=== PATIENT | male | born 1955 | race Asian ===

== ENCOUNTER 2017-04-10 21:00 | Inpatient (IN) | payer BC ==
[~2017-04-10] VITALS: Ht 170.2 cm; Wt 54.9 kg
[2017-04-10 20:00] VITALS: BP 146/80
[2017-04-10 20:30] VITALS: BP 146/80
[2017-04-10] MEDS ORDERED: LOSA100T14 PO (22:36)
[2017-04-10] MEDS ORDERED: GLYB2.5T4 PO (22:36)
[2017-04-10] MEDS ORDERED: METF10002 PO (22:36)
[2017-04-10] MEDS ORDERED: ENTE0.5T4 PO (22:46)
[2017-04-10] MEDS ORDERED: ASPI-1158 PO (23:27)
[2017-04-10] MEDS ORDERED: SITA25TA3 PO (23:27)
[2017-04-10] MEDS: ASPIRIN 81MG EC TABLET PO SCH (23:30)
[2017-04-10] MEDS ORDERED: HEPARIN 25,000 UNITS PREMIX 500 ML IV PRN (23:30)
[2017-04-10] MEDS ORDERED: GUAIFENESIN 200MG/10ML SUGAR FREE UDC PO PRN (23:45)
[2017-04-10] MEDS ORDERED: DOCUSATE SODIUM 100MG CAPSULE PO PRN (23:45)
[2017-04-10] MEDS ORDERED: CLONIDINE 0.1MG TABLET PO PRN (23:45)
[2017-04-10] MEDS ORDERED: DIPHENHYDRAMINE 50MG/ML VIAL IV PRN (23:45)
[2017-04-10] MEDS ORDERED: ACETAMINOPHEN 325MG TABLET PO PRN (23:45)
[2017-04-10] MEDS ORDERED: IPRATROPIUM/ALBUTEROL 0.5-3(2.5)MG/3ML NEB INH PRN (23:45)
[2017-04-10] MEDS ORDERED: MAGNESIUM/ALUMINUM HYDROXIDE/SIMETHICONE 30ML UDC PO PRN (23:45)
[2017-04-10] MEDS ORDERED: ACETAMINOPHEN 650MG SUPP PR PRN (23:45)
[2017-04-10] MEDS ORDERED: ACETAMINOPHEN 650MG/20.3ML UDC GT PRN (23:45)
[2017-04-10] MEDS ORDERED: HYDROCODONE/ACETAMINOPHEN 5/325MG TABLET PO PRN (23:45)
[2017-04-10] MEDS ORDERED: NA PHOS,M-B/NA PHOS,DI-BA ENEMA 118ML PR PRN (23:45)
[2017-04-11] VITALS (7 sets, daily range): BP systolic 106–128; BP diastolic 57–79
[2017-04-11] MEDS ORDERED: HEPARIN 60 UNITS/KG BOLUS IV SCH (01:45)
[2017-04-11] MEDS ORDERED: HEPARIN BOLUS PRN aPTT <30 IV (02:00)
[2017-04-11] MEDS: HEPARIN 25,000 UNITS PREMIX 500 ML IV SCH (02:38)
[2017-04-11] MEDS ORDERED: DEXTROSE 50% WATER 50ML SYRINGE IV PRN (03:45)
[2017-04-11] MEDS: SODIUM CHLORIDE 0.9% INJ 3ML FLUSH IVF SCH ×3 (06:00→22:20)
[2017-04-11] MEDS: BLOOD SUGAR DIAGNOSTIC STRIP TEST SCH ×4 (07:35→22:20)
[2017-04-11 08:26] LABS: BASOPHILS % 0.3 % (0.0-2.0); HEMATOCRIT. 41.4 % (42.0-52.0); LYMPHOCYTES % 19.4 % (20.0-50.0); MEAN CORPUSCULAR HEMOGLOBIN 28.6 pg (28.0-32.0); MEAN CORPUSCULAR VOLUME 84.3 fL (80.0-94.0); MONOCYTES % 7.1 % (2.0-8.0); NEUTROPHILS % 67.2 % (40.0-76.0); PLATELET 183 x1000/uL (130-400); RED BLOOD CELL COUNT 4.91 mill/uL (4.7-6.1); RED CELL DISTRIBUTION WIDTH 14.8 % (11.6-14.6)
[2017-04-11] MEDS: LOSARTAN POTASSIUM 100 MG TABLET PO SCH (08:55)
[2017-04-11] MEDS: GLYBURIDE 2.5MG TABLET PO SCH ×2 (08:55→18:32)
[2017-04-11] MEDS: METFORMIN HCL 500MG TABLET PO SCH ×2 (08:55→18:31)
[2017-04-11] MEDS: ASPIRIN 81MG EC TABLET PO SCH (08:55)
[2017-04-11] MEDS: LINAGLIPTIN 5MG TABLET PO SCH (08:55)
[2017-04-11] MEDS ORDERED: SITAGLIPTIN PHOSPHATE 25 MG PO SCH (09:00)
[2017-04-11] MEDS ORDERED: ENTECAVIR 0.5 MG PO SCH (09:00)
[2017-04-11 09:27] LABS: CARBON DIOXIDE 25 mEq/L (21-32); CHLORIDE 102 mEq/L (98-107); HDL CHOLESTEROL 42 mg/dL (40-59); LDL CHOLESTEROL 66 mg/dL (5-100)
[2017-04-11] MEDS: METOPROLOL TARTRATE 25MG TABLET PO SCH ×2 (12:01→22:17)
[2017-04-11] MEDS: HEPARIN BOLUS PRN aPTT 30-44 IV (12:03)
[2017-04-11] MEDS: PATIENT OWN MED PO SCH (13:00)
[2017-04-11] MEDS: INSULIN LISPRO 100 UNITS/ML SUBCUT SCH ×2 (17:28→22:20)
[2017-04-11] MEDS: ATORVASTATIN CALCIUM 40MG TABLET PO SCH (21:00)
[2017-04-12] VITALS (12 sets, daily range): BP systolic 108–129; BP diastolic 62–92
[2017-04-12] MEDS: HEPARIN BOLUS PRN aPTT 30-44 IV ×2 (00:38→13:40)
[2017-04-12] MEDS: BLOOD SUGAR DIAGNOSTIC STRIP TEST SCH ×4 (05:16→20:33)
[2017-04-12] MEDS: SODIUM CHLORIDE 0.9% INJ 3ML FLUSH IVF SCH ×3 (05:17→20:47)
[2017-04-12] MEDS: INSULIN LISPRO 100 UNITS/ML SUBCUT SCH ×4 (07:20→20:38)
[2017-04-12] MEDS: METFORMIN HCL 500MG TABLET PO SCH ×2 (07:40→16:52)
[2017-04-12] MEDS: GLYBURIDE 2.5MG TABLET PO SCH ×2 (08:21→16:52)
[2017-04-12] MEDS: LINAGLIPTIN 5MG TABLET PO SCH (08:21)
[2017-04-12] MEDS: METOPROLOL TARTRATE 25MG TABLET PO SCH ×2 (08:22→20:46)
[2017-04-12] MEDS: LOSARTAN POTASSIUM 100 MG TABLET PO SCH (08:22)
[2017-04-12] MEDS: PATIENT OWN MED PO SCH (08:24)
[2017-04-12] MEDS: HEPARIN 25,000 UNITS PREMIX 500 ML IV SCH ×2 (10:00→13:43)
[2017-04-12] MEDS: ATORVASTATIN CALCIUM 40MG TABLET PO SCH (20:47)
[2017-04-13] VITALS (12 sets, daily range): BP systolic 109–135; BP diastolic 55–75
[2017-04-13 05:44] LABS: BASOPHILS % 0.6 % (0.0-2.0); EOSINOPHILS % 9.9 % (0.0-5.0); HEMATOCRIT. 44.7 % (42.0-52.0); HEMOGLOBIN. 15.2 g/dL (14.0-18.0); MEAN CORPUSCULAR HEMOGLOBIN 28.9 pg (28.0-32.0); MEAN CORPUSCULAR VOLUME 84.9 fL (80.0-94.0); MEAN PLATELET VOLUME 10.5 fl (7.4-10.4); MONOCYTES % 6.2 % (2.0-8.0); NEUTROPHILS % 58.3 % (40.0-76.0); PLATELET 193 x1000/uL (130-400); RED BLOOD CELL COUNT 5.26 mill/uL (4.7-6.1); RED CELL DISTRIBUTION WIDTH 14.6 % (11.6-14.6)
[2017-04-13] MEDS: HEPARIN 25,000 UNITS PREMIX 500 ML IV SCH (06:17)
[2017-04-13] MEDS: SODIUM CHLORIDE 0.9% INJ 3ML FLUSH IVF SCH ×3 (06:21→21:42)
[2017-04-13] MEDS: BLOOD SUGAR DIAGNOSTIC STRIP TEST SCH ×4 (06:21→21:38)
[2017-04-13 06:43] LABS: CARBON DIOXIDE 26 mEq/L (21-32); CHLORIDE 105 mEq/L (98-107)
[2017-04-13] MEDS: INSULIN LISPRO 100 UNITS/ML SUBCUT SCH ×4 (07:20→21:00)
[2017-04-13] MEDS ORDERED: NITROGLYCERIN SPRAY/4.9GM CAN TL PRN (07:30)
[2017-04-13] MEDS: METFORMIN HCL 500MG TABLET PO SCH ×2 (08:31→18:07)
[2017-04-13] MEDS: GLYBURIDE 2.5MG TABLET PO SCH ×2 (08:31→18:07)
[2017-04-13] MEDS: LOSARTAN POTASSIUM 100 MG TABLET PO SCH (08:32)
[2017-04-13] MEDS: METOPROLOL TARTRATE 25MG TABLET PO SCH ×3 (08:32→21:37)
[2017-04-13] MEDS: PATIENT OWN MED PO SCH (08:32)
[2017-04-13] MEDS: LINAGLIPTIN 5MG TABLET PO SCH (08:33)
[2017-04-13] MEDS: ENOXAPARIN 60MG/0.6ML SYR SUBCUT SCH (14:08)
[2017-04-13] MEDS: ATORVASTATIN CALCIUM 40MG TABLET PO SCH (21:37)
[2017-04-14] VITALS (13 sets, daily range): BP systolic 101–122; BP diastolic 54–84
[2017-04-14] MEDS: ENOXAPARIN 60MG/0.6ML SYR SUBCUT SCH ×2 (02:16→14:16)
[2017-04-14] MEDS: BLOOD SUGAR DIAGNOSTIC STRIP TEST SCH ×4 (05:21→20:19)
[2017-04-14] MEDS: SODIUM CHLORIDE 0.9% INJ 3ML FLUSH IVF SCH ×3 (05:21→22:57)
[2017-04-14] MEDS: METOPROLOL TARTRATE 25MG TABLET PO SCH ×3 (05:21→22:58)
[2017-04-14] MEDS: INSULIN LISPRO 100 UNITS/ML SUBCUT SCH ×4 (05:22→20:34)
[2017-04-14] MEDS: METFORMIN HCL 500MG TABLET PO SCH ×2 (07:16→17:14)
[2017-04-14 07:33] LABS: CARBON DIOXIDE 25 mEq/L (21-32); CHLORIDE 104 mEq/L (98-107)
[2017-04-14 07:56] LABS: BASOPHILS % 0.6 % (0.0-2.0); HEMATOCRIT. 41.9 % (42.0-52.0); HEMOGLOBIN. 14.2 g/dL (14.0-18.0); MEAN CORPUSCULAR HEMOGLOBIN 28.6 pg (28.0-32.0); MEAN CORPUSCULAR VOLUME 84.3 fL (80.0-94.0); MEAN PLATELET VOLUME 11.2 fl (7.4-10.4); MONOCYTES % 6.2 % (2.0-8.0); NEUTROPHILS % 64.2 % (40.0-76.0); PLATELET 197 x1000/uL (130-400); RED BLOOD CELL COUNT 4.97 mill/uL (4.7-6.1); RED CELL DISTRIBUTION WIDTH 14.5 % (11.6-14.6)
[2017-04-14] MEDS: GLYBURIDE 2.5MG TABLET PO SCH ×2 (08:46→17:15)
[2017-04-14] MEDS: LINAGLIPTIN 5MG TABLET PO SCH (08:46)
[2017-04-14] MEDS: PATIENT OWN MED PO SCH (08:46)
[2017-04-14] MEDS ORDERED: METOPROLOL TARTRATE 5MG/5ML VIAL IV ONE ×2 (09:35→09:45)
[2017-04-14] MEDS ORDERED: FENTANYL CITRATE/PF 50MCG/ML 2ML VIAL ONE (12:51)
[2017-04-14] MEDS ORDERED: LIDOCAINE HCL 2% JELLY 5ML ONE ×2 (12:52→13:20)
[2017-04-14] MEDS ORDERED: MIDAZOLAM HCL 5 MG/5 ML VIAL ONE (12:52)
[2017-04-14] MEDS ORDERED: TETRACAINE/BENZOCAINE/BUTAMBEN 20 GM SPRAY MM ONE (12:52)
[2017-04-14] MEDS ORDERED: SODIUM CHLORIDE 0.9% 10ML VIAL ONE (16:56)
[2017-04-14] MEDS ORDERED: IOHEXOL-350 100 ML BOTTLE ONE (16:56)
[2017-04-14 18:20] LABS: HEPATITIS B CORE AB IGM NEGATIVE
[2017-04-14 18:21] LABS: HEPATITIS A AB IGM NEGATIVE (NEGATIVE)
[2017-04-14 18:33] LABS: HEPATITIS B SURFACE ANTIGEN REACTIVE PEND CONFIR
[2017-04-14] MEDS: ATORVASTATIN CALCIUM 40MG TABLET PO SCH (20:35)
[2017-04-14] MEDS ORDERED: ENOXAPARIN 60MG/0.6ML SYR SUBCUT SCH (23:00)
[2017-04-15] VITALS (15 sets, daily range): BP systolic 109–150; BP diastolic 17–108
[2017-04-15] MEDS: SODIUM CHLORIDE 0.9% INJ 3ML FLUSH IVF SCH ×3 (06:38→21:26)
[2017-04-15] MEDS: METOPROLOL TARTRATE 25MG TABLET PO SCH ×3 (06:39→21:26)
[2017-04-15] MEDS: INSULIN LISPRO 100 UNITS/ML SUBCUT SCH ×4 (06:40→21:35)
[2017-04-15] MEDS: BLOOD SUGAR DIAGNOSTIC STRIP TEST SCH ×4 (06:40→21:25)
[2017-04-15] MEDS: METFORMIN HCL 500MG TABLET PO SCH ×2 (07:20→17:20)
[2017-04-15 07:34] LABS: CARBON DIOXIDE 26 mEq/L (21-32); CHLORIDE 103 mEq/L (98-107)
[2017-04-15 07:47] LABS: BASOPHILS % 0.5 % (0.0-2.0); EOSINOPHILS % 9.3 % (0.0-5.0); HEMATOCRIT. 42.7 % (42.0-52.0); HEMOGLOBIN. 14.4 g/dL (14.0-18.0); LYMPHOCYTES % 21.1 % (20.0-50.0); MEAN CORPUSCULAR HEMOGLOBIN 28.6 pg (28.0-32.0); MEAN CORPUSCULAR VOLUME 84.7 fL (80.0-94.0); MEAN PLATELET VOLUME 10.7 fl (7.4-10.4); MONOCYTES % 6.9 % (2.0-8.0); NEUTROPHILS % 62.2 % (40.0-76.0); PLATELET 187 x1000/uL (130-400); RED BLOOD CELL COUNT 5.04 mill/uL (4.7-6.1); RED CELL DISTRIBUTION WIDTH 14.7 % (11.6-14.6)
[2017-04-15] MEDS: LINAGLIPTIN 5MG TABLET PO SCH (08:09)
[2017-04-15] MEDS: PATIENT OWN MED PO SCH (08:09)
[2017-04-15] MEDS: GLYBURIDE 2.5MG TABLET PO SCH ×2 (08:09→18:08)
[2017-04-15] MEDS ORDERED: HEPARIN SODIUM 1,000 UNIT/1ML VIAL IV ONE (14:57)
[2017-04-15] MEDS ORDERED: FENTANYL CITRATE/PF 50MCG/ML 2ML VIAL ONE (15:24)
[2017-04-15] MEDS ORDERED: MIDAZOLAM HCL 2 MG/2 ML VIAL ONE (15:24)
[2017-04-15] MEDS ORDERED: LIDOCAINE HCL 1% 20ML VIAL (Pyxis) INJ ONE (15:25)
[2017-04-15] MEDS ORDERED: IOHEXOL-300 100 ML BOTTLE ONE (15:28)
[2017-04-15] MEDS ORDERED: IOVERSOL 240MG/ML 100ML BOTTLE IV ONE (15:44)
[2017-04-15] MEDS ORDERED: IODIXANOL 320MG/ML 100 ML BOTTLE IV ONE ×2 (16:02→16:40)
[2017-04-15] MEDS ORDERED: ASPIRIN 325MG TABLET ONE (17:25)
[2017-04-15] MEDS ORDERED: CLOPIDOGREL 75MG TABLET ONE (17:25)
[2017-04-15] MEDS ORDERED: ATROPINE SULFATE 1MG/10ML SYR IV PRN (17:30)
[2017-04-15] MEDS ORDERED: SODIUM CHLORIDE 0.45% 1,000 ML IV ONE (17:30)
[2017-04-15] MEDS: ATORVASTATIN CALCIUM 40MG TABLET PO SCH (21:26)
[2017-04-16] VITALS (9 sets, daily range): BP systolic 112–137; BP diastolic 58–88
[2017-04-16] MEDS: BLOOD SUGAR DIAGNOSTIC STRIP TEST SCH ×2 (05:55→11:50)
[2017-04-16] MEDS: INSULIN LISPRO 100 UNITS/ML SUBCUT SCH ×2 (05:55→12:41)
[2017-04-16] MEDS: METOPROLOL TARTRATE 25MG TABLET PO SCH (06:02)
[2017-04-16 06:17] LABS: BASOPHILS % 0.5 % (0.0-2.0); EOSINOPHILS % 6.4 % (0.0-5.0); HEMATOCRIT. 40.4 % (42.0-52.0); HEMOGLOBIN. 13.8 g/dL (14.0-18.0); LYMPHOCYTES % 16.9 % (20.0-50.0); MEAN CORPUSCULAR HEMOGLOBIN 28.6 pg (28.0-32.0); MEAN CORPUSCULAR VOLUME 83.7 fL (80.0-94.0); MEAN PLATELET VOLUME 10.8 fl (7.4-10.4); MONOCYTES % 8.2 % (2.0-8.0); PLATELET 181 x1000/uL (130-400); RED BLOOD CELL COUNT 4.83 mill/uL (4.7-6.1); RED CELL DISTRIBUTION WIDTH 14.6 % (11.6-14.6)
[2017-04-16 06:39] LABS: CARBON DIOXIDE 26 mEq/L (21-32); CHLORIDE 104 mEq/L (98-107)
[2017-04-16] MEDS: SODIUM CHLORIDE 0.9% INJ 3ML FLUSH IVF SCH (07:15)
[2017-04-16] MEDS: METFORMIN HCL 500MG TABLET PO SCH (07:20)
[2017-04-16] MEDS ORDERED: CLOPIDOGREL 75MG TABLET PO SCH (09:00)
[2017-04-16] MEDS ORDERED: ASPIRIN 81MG TABLET PO SCH (09:00)
[2017-04-16] MEDS: GLYBURIDE 2.5MG TABLET PO SCH (09:18)
[2017-04-16] MEDS: LINAGLIPTIN 5MG TABLET PO SCH (09:18)
[2017-04-16] MEDS: PATIENT OWN MED PO SCH (09:19)
== END 2017-04-16 14:40 | disposition home or self-care (01) | DRG 303 ==
LOC: 7WST 21:00 → 3WST 04-11 22:55
PROVIDERS: ADMIT Family Medicine; ATTEND Family Medicine
PROC: B24BZZ4 Ultrasonography of Heart with Aorta, Transesophageal (ICD-10-PCS; principal; 2017-04-14)
DX: I25.10 Atherosclerotic heart disease of native coronary artery without angina pectoris (principal); I42.9 Cardiomyopathy, unspecified; B19.10 Unspecified viral hepatitis B without hepatic coma; I10 Essential (primary) hypertension; E11.9 Type 2 diabetes mellitus without complications; E78.5 Hyperlipidemia, unspecified; I34.0 Nonrheumatic mitral (valve) insufficiency; E03.9 Hypothyroidism, unspecified; Z82.49 Family history of ischemic heart disease and other diseases of the circulatory system; Z83.3 Family history of diabetes mellitus; Z79.82 Long term (current) use of aspirin; Z79.899 Other long term (current) drug therapy
CPT/HCPCS: 36415; 71010; 75571; 80048; 80053; 80061; 82962; 83036; 83735; 85025; 85347; 85730; 86705; 86709; 86803; 87340; 92928; 93005; 93306; 93312; 93454; 93880; 97162; A4216; C1725; C1760; C1769; C1887; C1893; J1644; J1650; J1815; J2250; J3010; J3490; J7040; Q9967; A4315

== ENCOUNTER → 2017-06-23 | Outpatient (CLI) | payer BC ==
[~2017-06-23] MED LIST: ASPI-1158 PO; ENTE0.5T4 PO; GLYB2.5T4 PO; LOSA100T14 PO; METF10002 PO; SITA25TA3 PO
== END | disposition home or self-care (01) ==
LOC: NM 07:41
PROVIDERS: ATTEND Specialist
DX: S72.002A Fracture of unspecified part of neck of left femur, initial encounter for closed fracture (principal); S32.009A Unspecified fracture of unspecified lumbar vertebra, initial encounter for closed fracture; I25.10 Atherosclerotic heart disease of native coronary artery without angina pectoris; W19.XXXA Unspecified fall, initial encounter; Y93.89 Activity, other specified; Y92.89 Other specified places as the place of occurrence of the external cause; Y99.8 Other external cause status
CPT/HCPCS: 78452; 93017; A9500

== ENCOUNTER 2019-07-29 18:34 | Inpatient (IN) | payer BC, MEDICARE ==
[~2019-07-29] VITALS: Ht 167.6 cm; Wt 60.3 kg
[2019-07-29] VITALS (17 sets, daily range): BP systolic 118–151; BP diastolic 64–80
[~2019-07-29 18:34] MED LIST changes: -LOSA100T14 PO; +LOSA100T32 PO; +METF-416 PO; -METF10002 PO
[2019-07-29] MEDS ORDERED: PROPOFOL 10MG/ML 100ML 100 ML IV PRN ×2 (19:15→19:30)
[2019-07-29] MEDS ORDERED: NICARDIPINE 100 MG in SODIUM CHLORIDE 0.9% 60 ML IV PRN (19:15)
[2019-07-29] MEDS: DEXT 5%/LACTATED RINGERS 1,000 ML IV SCH (19:37)
[2019-07-29 20:30] LABS: BG BASE EXCESS -1.8 mmol/L (-2.0-2.0); BG DEOXYHEMOGLOBIN 1.5 % (0.0-5.0); BG FRACTION INSPIRED OXYGEN 40; BG HCO3 ACT 21.2 mmol/L (22.0-26.0); BG METHEMOGLOBIN 0.2 % (0.0-1.5); BG OXYGEN SATURATION 98.5 % (92.0-98.5); BG OXYHEMOGLOBIN 98.3 % (94.0-97.0); BG PCO2 30.1 mmHg (35.0-45.0); BG PH 7.466 (7.350-7.450); BG PO2 145.2 mmHg (75.0-100.0); BG SAMPLE SITE LEFT RADIAL; BG TIDAL VOLUME(mL) 500 mL; BG TOTAL HEMOGLOBIN 10.7 g/dL (12.0-18.0); BG VENT MODE VENT - SIMV; BG VENT RATE 12 set
[2019-07-29] MEDS: IPRATROPIUM/ALBUTEROL 0.5-3(2.5)MG/3ML NEB HHN SCH (20:36)
[2019-07-29] MEDS ORDERED: LANTUSUD SUBCUT (20:47)
[2019-07-29] MEDS: LEVETIRACETAM 500MG PREMIX 100 ML IV SCH (21:11)
[2019-07-29 22:15] LABS: CHLORIDE 114 mEq/L (98-107)
[2019-07-29 22:19] LABS: BASOPHILS % 0.4 % (0.0-2.0); EOSINOPHILS % 0.2 % (0.0-5.0); HEMATOCRIT. 32.3 % (42.0-52.0); LYMPHOCYTES % 8.6 % (20.0-50.0); MEAN CORPUSCULAR VOLUME 82.2 fL (80.0-94.0); MEAN PLATELET VOLUME 10.6 fl (7.4-10.4); MONOCYTES % 7.2 % (2.0-8.0); NEUTROPHILS % 83.6 % (40.0-76.0); PLATELET 93 x1000/uL (130-400); RED BLOOD CELL COUNT 3.94 mill/uL (4.7-6.1); RED CELL DISTRIBUTION WIDTH 17.2 % (11.6-14.6)
[2019-07-30] VITALS (96 sets, daily range): BP systolic 115–151; BP diastolic 63–98
[2019-07-30] MEDS: IPRATROPIUM/ALBUTEROL 0.5-3(2.5)MG/3ML NEB HHN SCH ×5 (00:40→16:52)
[2019-07-30] MEDS: LEVETIRACETAM 500MG PREMIX 100 ML IV SCH ×2 (08:32→20:35)
[2019-07-30] MEDS ORDERED: DEXTROSE 50% WATER 50ML SYRINGE IV PRN (10:15)
[2019-07-30 10:20] LABS: BG BASE EXCESS -1.3 mmol/L (-2.0-2.0); BG CARBOXYHEMOGLOBIN 0.3 % (0.5-1.5); BG DEOXYHEMOGLOBIN 1.8 % (0.0-5.0); BG FRACTION INSPIRED OXYGEN 35; BG HCO3 ACT 22.1 mmol/L (22.0-26.0); BG METHEMOGLOBIN 0.3 % (0.0-1.5); BG OXYGEN SATURATION 98.2 % (92.0-98.5); BG OXYHEMOGLOBIN 97.6 % (94.0-97.0); BG PCO2 32.6 mmHg (35.0-45.0); BG PH 7.449 (7.350-7.450); BG PO2 145.6 mmHg (75.0-100.0); BG PRESSURE SUPPORT 10; BG SAMPLE SITE RIGHT RADIAL; BG VENT MODE VENT - CPAP
[2019-07-30] MEDS: BLOOD SUGAR DIAGNOSTIC STRIP TEST SCH ×3 (11:54→23:10)
[2019-07-30] MEDS: PANTOPRAZOLE SODIUM 40 MG/VIAL IV SCH (11:58)
[2019-07-30] MEDS: INSULIN LISPRO 100 UNITS/ML SUBCUT SCH ×3 (11:58→23:11)
[2019-07-30] MEDS: DEXT 5%/LACTATED RINGERS 1,000 ML IV SCH ×2 (13:46→17:55)
[2019-07-30] MEDS: MORPHINE SULFATE 2 MG/ML CPJ (NOT FOR IM USE) IV PRN ×2 (14:22→16:42)
[2019-07-30] MEDS: ESMOLOL 2500MG PREMIX 250 ML IV PRN (17:55)
[2019-07-30] MEDS ORDERED: PROPOFOL 10MG/ML 100ML 100 ML IV PRN (20:15)
[2019-07-30] MEDS ORDERED: ACETAMINOPHEN 325MG SUPP PR PRN (20:30)
[2019-07-31] VITALS (86 sets, daily range): BP systolic 115–164; BP diastolic 63–94
[2019-07-31] MEDS: IPRATROPIUM/ALBUTEROL 0.5-3(2.5)MG/3ML NEB HHN SCH ×4 (00:32→20:03)
[2019-07-31] MEDS: ESMOLOL 2500MG PREMIX 250 ML IV PRN ×2 (04:35→16:27)
[2019-07-31] MEDS: BLOOD SUGAR DIAGNOSTIC STRIP TEST SCH ×3 (05:38→18:11)
[2019-07-31] MEDS: INSULIN LISPRO 100 UNITS/ML SUBCUT SCH ×3 (05:41→18:18)
[2019-07-31 05:43] LABS: HEMOGLOBIN. 10.4 g/dL (14.0-18.0); MEAN CORPUSCULAR VOLUME 83.3 fL (80.0-94.0); MEAN PLATELET VOLUME 9.9 fl (7.4-10.4); PLATELET 96 x1000/uL (130-400); RED BLOOD CELL COUNT 3.72 mill/uL (4.7-6.1); RED CELL DISTRIBUTION WIDTH 16.9 % (11.6-14.6)
[2019-07-31 05:58] LABS: CHLORIDE 111 mEq/L (98-107)
[2019-07-31 06:56] LABS: PLATELET ESTIMATE SLIGHTLY DECREASED
[2019-07-31] MEDS: LEVETIRACETAM 500MG PREMIX 100 ML IV SCH ×2 (08:04→21:10)
[2019-07-31] MEDS: PANTOPRAZOLE SODIUM 40 MG/VIAL IV SCH (08:04)
[2019-07-31] MEDS: INSULIN GLARGINE UD 100 UNITS/ML SYR SUBCUT SCH ×2 (10:30→21:12)
[2019-07-31 12:23] LABS: BG BASE EXCESS -0.9 mmol/L (-2.0-2.0); BG CARBOXYHEMOGLOBIN 0.3 % (0.5-1.5); BG DEOXYHEMOGLOBIN 1.7 % (0.0-5.0); BG FRACTION INSPIRED OXYGEN 35; BG HCO3 ACT 22.5 mmol/L (22.0-26.0); BG METHEMOGLOBIN 0.3 % (0.0-1.5); BG OXYGEN SATURATION 98.3 % (92.0-98.5); BG OXYHEMOGLOBIN 97.7 % (94.0-97.0); BG PCO2 32.7 mmHg (35.0-45.0); BG PH 7.455 (7.350-7.450); BG PO2 143.4 mmHg (75.0-100.0); BG PRESSURE SUPPORT 12; BG SAMPLE SITE RIGHT RADIAL; BG TIDAL VOLUME(mL) 450 mL; BG TOTAL HEMOGLOBIN 10.3 g/dL (12.0-18.0); BG VENT MODE VENT - SIMV; BG VENT RATE 6 set
[2019-07-31] MEDS: DEXT 5%/LACTATED RINGERS 1,000 ML IV SCH (18:18)
[2019-07-31] MEDS: MORPHINE SULFATE 2 MG/ML CPJ (NOT FOR IM USE) IV PRN (21:11)
[2019-08-01] VITALS (85 sets, daily range): BP systolic 107–152; BP diastolic 65–86
[2019-08-01] MEDS: BLOOD SUGAR DIAGNOSTIC STRIP TEST SCH ×5 (00:10→23:34)
[2019-08-01] MEDS: INSULIN LISPRO 100 UNITS/ML SUBCUT SCH ×5 (00:16→23:35)
[2019-08-01] MEDS: IPRATROPIUM/ALBUTEROL 0.5-3(2.5)MG/3ML NEB HHN SCH ×4 (01:56→21:03)
[2019-08-01] MEDS: ESMOLOL 2500MG PREMIX 250 ML IV PRN (02:07)
[2019-08-01 05:56] LABS: BASOPHILS % 0.3 % (0.0-2.0); EOSINOPHILS % 2.6 % (0.0-5.0); HEMATOCRIT. 30.6 % (42.0-52.0); HEMOGLOBIN. 10.4 g/dL (14.0-18.0); LYMPHOCYTES % 8.2 % (20.0-50.0); MEAN CORPUSCULAR HEMOGLOBIN 28.2 pg (28.0-32.0); MEAN PLATELET VOLUME 10.3 fl (7.4-10.4); MONOCYTES % 6.8 % (2.0-8.0); NEUTROPHILS % 82.1 % (40.0-76.0); PLATELET 111 x1000/uL (130-400); RED BLOOD CELL COUNT 3.68 mill/uL (4.7-6.1); RED CELL DISTRIBUTION WIDTH 16.1 % (11.6-14.6)
[2019-08-01 06:25] LABS: CHLORIDE 111 mEq/L (98-107)
[2019-08-01] MEDS: LEVETIRACETAM 500MG PREMIX 100 ML IV SCH ×2 (09:07→20:33)
[2019-08-01] MEDS: PANTOPRAZOLE SODIUM 40 MG/VIAL IV SCH (09:07)
[2019-08-01 09:55] LABS: BG BASE EXCESS 3.2 mmol/L (-2.0-2.0); BG CARBOXYHEMOGLOBIN 0.2 % (0.5-1.5); BG DEOXYHEMOGLOBIN 1.3 % (0.0-5.0); BG FRACTION INSPIRED OXYGEN 35; BG HCO3 ACT 26.7 mmol/L (22.0-26.0); BG METHEMOGLOBIN 0.2 % (0.0-1.5); BG OXYGEN SATURATION 98.7 % (92.0-98.5); BG OXYHEMOGLOBIN 98.3 % (94.0-97.0); BG PCO2 36.5 mmHg (35.0-45.0); BG PH 7.482 (7.350-7.450); BG PO2 170.4 mmHg (75.0-100.0); BG PRESSURE SUPPORT 12; BG SAMPLE SITE RIGHT RADIAL; BG TIDAL VOLUME(mL) 450 mL; BG TOTAL HEMOGLOBIN 10.6 g/dL (12.0-18.0); BG VENT MODE VENT - SIMV; BG VENT RATE 6 set
[2019-08-01 10:12] LABS: BG BASE EXCESS -1.5 mmol/L (-2.0-2.0); BG CARBOXYHEMOGLOBIN 0.2 % (0.5-1.5); BG FRACTION INSPIRED OXYGEN 35; BG HCO3 ACT 21.5 mmol/L (22.0-26.0); BG METHEMOGLOBIN 0.3 % (0.0-1.5); BG OXYHEMOGLOBIN 98.5 % (94.0-97.0); BG PCO2 30.4 mmHg (35.0-45.0); BG PH 7.467 (7.350-7.450); BG PO2 164.4 mmHg (75.0-100.0); BG PRESSURE SUPPORT 12; BG SAMPLE SITE RIGHT RADIAL; BG TOTAL HEMOGLOBIN 10.5 g/dL (12.0-18.0); BG VENT MODE VENT - CPAP
[2019-08-01] MEDS: INSULIN GLARGINE UD 100 UNITS/ML SYR SUBCUT SCH ×2 (10:17→21:54)
[2019-08-01 13:15] LABS: PROTHROMBIN TIME 10.7 sec (9.6-11.0)
[2019-08-01] MEDS: DEXT 5%/LACTATED RINGERS 1,000 ML IV SCH (20:32)
[2019-08-02] VITALS (54 sets, daily range): BP systolic 120–156; BP diastolic 60–91
[2019-08-02] MEDS: IPRATROPIUM/ALBUTEROL 0.5-3(2.5)MG/3ML NEB HHN SCH ×4 (02:50→20:12)
[2019-08-02] MEDS: BLOOD SUGAR DIAGNOSTIC STRIP TEST SCH ×4 (05:36→23:58)
[2019-08-02] MEDS: INSULIN LISPRO 100 UNITS/ML SUBCUT SCH ×3 (05:40→17:47)
[2019-08-02 05:59] LABS: BASOPHILS % 0.3 % (0.0-2.0); EOSINOPHILS % 5.1 % (0.0-5.0); HEMOGLOBIN. 10.1 g/dL (14.0-18.0); MEAN CORPUSCULAR HEMOGLOBIN 28.6 pg (28.0-32.0); MEAN CORPUSCULAR VOLUME 84.8 fL (80.0-94.0); MEAN PLATELET VOLUME 10.5 fl (7.4-10.4); MONOCYTES % 8.7 % (2.0-8.0); NEUTROPHILS % 76.9 % (40.0-76.0); PLATELET 113 x1000/uL (130-400); RED BLOOD CELL COUNT 3.54 mill/uL (4.7-6.1)
[2019-08-02 06:40] LABS: CHLORIDE 111 mEq/L (98-107)
[2019-08-02] MEDS: LEVETIRACETAM 500MG PREMIX 100 ML IV SCH ×2 (08:41→21:18)
[2019-08-02] MEDS: PANTOPRAZOLE SODIUM 40 MG/VIAL IV SCH (08:41)
[2019-08-02] MEDS ORDERED: POTASSIUM CHLORIDE INJ 40 MEQ in DEXT 5% WATER 250 ML IV SCH (09:00)
[2019-08-02] MEDS ORDERED: BISACODYL 5MG TABLET PO PRN (10:30)
[2019-08-02] MEDS ORDERED: ACETAMINOPHEN WITH CODEINE 300/30MG TABLET PO PRN (10:30)
[2019-08-02] MEDS ORDERED: BISACODYL 10MG SUPP PR NR (10:45)
[2019-08-02] MEDS ORDERED: OXYMETAZOLINE HCL NASAL SPRAY 15ML BOTHNSTRLS PRN (11:00)
[2019-08-02] MEDS: INSULIN GLARGINE UD 100 UNITS/ML SYR SUBCUT SCH ×2 (11:31→23:57)
[2019-08-02] MEDS ORDERED: FERR325T6 MT (12:07)
[2019-08-02] MEDS ORDERED: ATOR40TA70 MT (12:07)
[2019-08-02] MEDS ORDERED: CLOP75TA33 MT (12:08)
[2019-08-02] MEDS ORDERED: GLIP10TA10 MT (12:09)
[2019-08-02] MEDS ORDERED: BACITRACIN/POLYMYXIN B SULFATE OINT 15GM TOP NR (12:30)
[2019-08-02] MEDS: HYDRALAZINE 20MG/ML VIAL IV PRN (12:55)
[2019-08-02] MEDS: MORPHINE SULFATE 2 MG/ML CPJ (NOT FOR IM USE) IV PRN ×2 (14:39→23:59)
[2019-08-02] MEDS: DOCUSATE SODIUM 100MG CAPSULE PO SCH (17:00)
[2019-08-02] MEDS: DEXT 5%/LACTATED RINGERS 1,000 ML IV SCH ×2 (20:32→21:18)
[2019-08-02] MEDS: GUAIFENESIN 600MG ER TABLET PO SCH (21:20)
[2019-08-03] VITALS (12 sets, daily range): BP systolic 137–158; BP diastolic 63–91
[2019-08-03] MEDS: MORPHINE SULFATE 2 MG/ML CPJ (NOT FOR IM USE) IV PRN (00:06)
[2019-08-03] MEDS: INSULIN LISPRO 100 UNITS/ML SUBCUT SCH ×5 (00:11→23:20)
[2019-08-03] MEDS: IPRATROPIUM/ALBUTEROL 0.5-3(2.5)MG/3ML NEB HHN SCH ×4 (01:15→20:17)
[2019-08-03] MEDS: BLOOD SUGAR DIAGNOSTIC STRIP TEST SCH ×4 (05:30→23:07)
[2019-08-03 07:21] LABS: BASOPHILS % 0.6 % (0.0-2.0); EOSINOPHILS % 6.1 % (0.0-5.0); HEMATOCRIT. 30.3 % (42.0-52.0); HEMOGLOBIN. 10.4 g/dL (14.0-18.0); LYMPHOCYTES % 8.2 % (20.0-50.0); MEAN CORPUSCULAR HEMOGLOBIN 28.4 pg (28.0-32.0); MEAN CORPUSCULAR VOLUME 82.7 fL (80.0-94.0); MEAN PLATELET VOLUME 10.3 fl (7.4-10.4); NEUTROPHILS % 77.1 % (40.0-76.0); PLATELET 138 x1000/uL (130-400); RED BLOOD CELL COUNT 3.66 mill/uL (4.7-6.1)
[2019-08-03 08:26] LABS: CHLORIDE 106 mEq/L (98-107)
[2019-08-03] MEDS: LEVETIRACETAM 500MG PREMIX 100 ML IV SCH ×2 (10:03→20:39)
[2019-08-03] MEDS: PANTOPRAZOLE SODIUM 40 MG/VIAL IV SCH (10:03)
[2019-08-03] MEDS: GUAIFENESIN 600MG ER TABLET PO SCH ×2 (10:03→20:48)
[2019-08-03] MEDS: DOCUSATE SODIUM 100MG CAPSULE PO SCH ×2 (10:03→18:07)
[2019-08-03] MEDS: METOPROLOL TARTRATE 25MG TABLET PO SCH ×2 (10:11→20:49)
[2019-08-03] MEDS ORDERED: POTASSIUM CHLORIDE 20MEQ TABLET SR PO NR (11:15)
[2019-08-03] MEDS: HYDRALAZINE 20MG/ML VIAL IV PRN (13:11)
[2019-08-03] MEDS: INSULIN GLARGINE UD 100 UNITS/ML SYR SUBCUT SCH (23:21)
[2019-08-04] VITALS (12 sets, daily range): BP systolic 113–156; BP diastolic 55–81
[2019-08-04] MEDS: IPRATROPIUM/ALBUTEROL 0.5-3(2.5)MG/3ML NEB HHN SCH ×4 (01:15→21:06)
[2019-08-04] MEDS: HYDRALAZINE 20MG/ML VIAL IV PRN (03:31)
[2019-08-04] MEDS: BLOOD SUGAR DIAGNOSTIC STRIP TEST SCH ×4 (05:47→23:08)
[2019-08-04] MEDS: INSULIN LISPRO 100 UNITS/ML SUBCUT SCH ×7 (05:54→23:14)
[2019-08-04 07:26] LABS: BASOPHILS % 0.5 % (0.0-2.0); EOSINOPHILS % 5.9 % (0.0-5.0); HEMATOCRIT. 33.6 % (42.0-52.0); HEMOGLOBIN. 11.3 g/dL (14.0-18.0); LYMPHOCYTES % 7.1 % (20.0-50.0); MEAN CORPUSCULAR HEMOGLOBIN 28.4 pg (28.0-32.0); MEAN CORPUSCULAR VOLUME 84.2 fL (80.0-94.0); MEAN PLATELET VOLUME 10.8 fl (7.4-10.4); MONOCYTES % 6.4 % (2.0-8.0); NEUTROPHILS % 80.1 % (40.0-76.0); PLATELET 155 x1000/uL (130-400); RED BLOOD CELL COUNT 3.99 mill/uL (4.7-6.1); RED CELL DISTRIBUTION WIDTH 15.8 % (11.6-14.6)
[2019-08-04 07:34] LABS: CHLORIDE 107 mEq/L (98-107)
[2019-08-04] MEDS: PANTOPRAZOLE SODIUM 40 MG/VIAL IV SCH (09:10)
[2019-08-04] MEDS: DOCUSATE SODIUM 100MG CAPSULE PO SCH ×2 (09:11→18:31)
[2019-08-04] MEDS: METOPROLOL TARTRATE 25MG TABLET PO SCH (09:11)
[2019-08-04] MEDS: GUAIFENESIN 600MG ER TABLET PO SCH ×2 (09:11→20:53)
[2019-08-04] MEDS: LEVETIRACETAM 500MG PREMIX 100 ML IV SCH ×2 (09:11→20:52)
[2019-08-04] MEDS: INSULIN GLARGINE UD 100 UNITS/ML SYR SUBCUT SCH ×2 (10:59→23:13)
[2019-08-04] MEDS: METOPROLOL TARTRATE 50MG TABLET PO SCH (20:55)
[2019-08-05] VITALS (12 sets, daily range): BP systolic 113–141; BP diastolic 57–88
[2019-08-05] MEDS: IPRATROPIUM/ALBUTEROL 0.5-3(2.5)MG/3ML NEB HHN SCH ×4 (01:19→20:26)
[2019-08-05] MEDS: INSULIN LISPRO 100 UNITS/ML SUBCUT SCH ×7 (05:59→23:07)
[2019-08-05] MEDS: BLOOD SUGAR DIAGNOSTIC STRIP TEST SCH ×4 (06:00→23:08)
[2019-08-05 06:04] LABS: BASOPHILS % 0.5 % (0.0-2.0); EOSINOPHILS % 7.9 % (0.0-5.0); HEMATOCRIT. 32.2 % (42.0-52.0); HEMOGLOBIN. 10.9 g/dL (14.0-18.0); LYMPHOCYTES % 11.5 % (20.0-50.0); MEAN CORPUSCULAR HEMOGLOBIN 27.8 pg (28.0-32.0); MEAN CORPUSCULAR VOLUME 82.3 fL (80.0-94.0); MEAN PLATELET VOLUME 10.3 fl (7.4-10.4); MONOCYTES % 6.5 % (2.0-8.0); NEUTROPHILS % 73.6 % (40.0-76.0); PLATELET 228 x1000/uL (130-400); RED BLOOD CELL COUNT 3.91 mill/uL (4.7-6.1); RED CELL DISTRIBUTION WIDTH 15.9 % (11.6-14.6)
[2019-08-05 06:41] LABS: CHLORIDE 108 mEq/L (98-107)
[2019-08-05] MEDS: LEVETIRACETAM 500MG PREMIX 100 ML IV SCH ×2 (08:34→21:40)
[2019-08-05] MEDS: DOCUSATE SODIUM 100MG CAPSULE PO SCH ×2 (08:35→17:00)
[2019-08-05] MEDS: PANTOPRAZOLE SODIUM 40 MG/VIAL IV SCH (08:35)
[2019-08-05] MEDS: GUAIFENESIN 600MG ER TABLET PO SCH ×2 (08:35→21:39)
[2019-08-05] MEDS: METOPROLOL TARTRATE 50MG TABLET PO SCH ×2 (08:47→21:40)
[2019-08-05] MEDS ORDERED: POTASSIUM CHLORIDE 20MEQ TABLET SR PO NR (11:00)
[2019-08-05] MEDS: INSULIN GLARGINE UD 100 UNITS/ML SYR SUBCUT SCH ×2 (11:08→23:08)
[2019-08-05 13:31] LABS: TOTAL IRON BINDING CAPACITY 248 ug/dL (250-450)
[2019-08-05] MEDS: FERROUS SULFATE 325MG TABLET PO SCH (19:04)
[2019-08-06] VITALS (16 sets, daily range): BP systolic 119–145; BP diastolic 68–81
[2019-08-06] MEDS: IPRATROPIUM/ALBUTEROL 0.5-3(2.5)MG/3ML NEB HHN SCH ×4 (01:55→21:06)
[2019-08-06] MEDS: BLOOD SUGAR DIAGNOSTIC STRIP TEST SCH ×4 (05:49→23:45)
[2019-08-06] MEDS: INSULIN LISPRO 100 UNITS/ML SUBCUT SCH ×6 (05:50→18:25)
[2019-08-06 06:43] LABS: BASOPHILS % 0.5 % (0.0-2.0); EOSINOPHILS % 6.5 % (0.0-5.0); HEMATOCRIT. 35.4 % (42.0-52.0); HEMOGLOBIN. 11.9 g/dL (14.0-18.0); LYMPHOCYTES % 9.5 % (20.0-50.0); MEAN CORPUSCULAR HEMOGLOBIN 27.9 pg (28.0-32.0); MEAN CORPUSCULAR VOLUME 83.2 fL (80.0-94.0); MEAN PLATELET VOLUME 10.2 fl (7.4-10.4); MONOCYTES % 6.8 % (2.0-8.0); NEUTROPHILS % 76.7 % (40.0-76.0); PLATELET 275 x1000/uL (130-400); RED BLOOD CELL COUNT 4.25 mill/uL (4.7-6.1); RED CELL DISTRIBUTION WIDTH 16.3 % (11.6-14.6)
[2019-08-06 07:20] LABS: CHLORIDE 104 mEq/L (98-107)
[2019-08-06 07:30] LABS: VITAMIN B12 SERUM 1205 pg/mL (211-911)
[2019-08-06] MEDS: FERROUS SULFATE 325MG TABLET PO SCH ×3 (08:00→18:15)
[2019-08-06] MEDS: LEVETIRACETAM 500MG PREMIX 100 ML IV SCH ×2 (09:30→21:42)
[2019-08-06] MEDS: METOPROLOL TARTRATE 50MG TABLET PO SCH ×2 (10:17→21:50)
[2019-08-06] MEDS: PANTOPRAZOLE SODIUM 40 MG/VIAL IV SCH (10:19)
[2019-08-06] MEDS: GUAIFENESIN 600MG ER TABLET PO SCH ×2 (10:19→21:50)
[2019-08-06] MEDS: DOCUSATE SODIUM 100MG CAPSULE PO SCH ×2 (10:27→18:15)
[2019-08-06] MEDS: INSULIN GLARGINE UD 100 UNITS/ML SYR SUBCUT SCH ×2 (10:42→21:51)
[2019-08-07] VITALS (13 sets, daily range): BP systolic 115–145; BP diastolic 51–92
[2019-08-07] MEDS: INSULIN LISPRO 100 UNITS/ML SUBCUT SCH ×7 (00:59→18:15)
[2019-08-07] MEDS: IPRATROPIUM/ALBUTEROL 0.5-3(2.5)MG/3ML NEB HHN SCH ×4 (02:09→20:44)
[2019-08-07] MEDS: BLOOD SUGAR DIAGNOSTIC STRIP TEST SCH ×3 (05:07→18:01)
[2019-08-07 06:09] LABS: BASOPHILS % 0.9 % (0.0-2.0); EOSINOPHILS % 5.5 % (0.0-5.0); HEMATOCRIT. 33.8 % (42.0-52.0); HEMOGLOBIN. 11.6 g/dL (14.0-18.0); LYMPHOCYTES % 9.2 % (20.0-50.0); MEAN CORPUSCULAR HEMOGLOBIN 28.4 pg (28.0-32.0); MEAN CORPUSCULAR VOLUME 82.4 fL (80.0-94.0); MEAN PLATELET VOLUME 10.3 fl (7.4-10.4); MONOCYTES % 6.3 % (2.0-8.0); NEUTROPHILS % 78.1 % (40.0-76.0); PLATELET 285 x1000/uL (130-400); RED CELL DISTRIBUTION WIDTH 16.3 % (11.6-14.6)
[2019-08-07 06:25] LABS: CHLORIDE 105 mEq/L (98-107)
[2019-08-07] MEDS: FERROUS SULFATE 325MG TABLET PO SCH ×3 (08:46→18:09)
[2019-08-07] MEDS: LEVETIRACETAM 500MG PREMIX 100 ML IV SCH ×2 (09:02→21:55)
[2019-08-07] MEDS: GUAIFENESIN 600MG ER TABLET PO SCH ×2 (09:02→21:58)
[2019-08-07] MEDS: METOPROLOL TARTRATE 50MG TABLET PO SCH ×2 (09:04→21:58)
[2019-08-07] MEDS: PANTOPRAZOLE SODIUM 40 MG/VIAL IV SCH (09:04)
[2019-08-07] MEDS: DOCUSATE SODIUM 100MG CAPSULE PO SCH ×2 (09:04→18:09)
[2019-08-07] MEDS: INSULIN GLARGINE UD 100 UNITS/ML SYR SUBCUT SCH ×2 (09:26→21:59)
[2019-08-08] VITALS (9 sets, daily range): BP systolic 98–142; BP diastolic 63–78
[2019-08-08] MEDS: INSULIN LISPRO 100 UNITS/ML SUBCUT SCH ×5 (01:05→13:58)
[2019-08-08] MEDS: IPRATROPIUM/ALBUTEROL 0.5-3(2.5)MG/3ML NEB HHN SCH ×3 (02:34→14:12)
[2019-08-08 06:12] LABS: EOSINOPHILS % 5.7 % (0.0-5.0); HEMATOCRIT. 34.1 % (42.0-52.0); HEMOGLOBIN. 11.8 g/dL (14.0-18.0); LYMPHOCYTES % 11.4 % (20.0-50.0); MEAN CORPUSCULAR HEMOGLOBIN 28.5 pg (28.0-32.0); MEAN CORPUSCULAR VOLUME 82.5 fL (80.0-94.0); MEAN PLATELET VOLUME 10.1 fl (7.4-10.4); MONOCYTES % 6.7 % (2.0-8.0); NEUTROPHILS % 75.2 % (40.0-76.0); PLATELET 317 x1000/uL (130-400); RED BLOOD CELL COUNT 4.13 mill/uL (4.7-6.1); RED CELL DISTRIBUTION WIDTH 16.2 % (11.6-14.6)
[2019-08-08] MEDS: BLOOD SUGAR DIAGNOSTIC STRIP TEST SCH ×3 (06:22→12:00)
[2019-08-08 07:10] LABS: CHLORIDE 107 mEq/L (98-107)
[2019-08-08] MEDS: LEVETIRACETAM 500MG PREMIX 100 ML IV SCH (09:52)
[2019-08-08] MEDS: GUAIFENESIN 600MG ER TABLET PO SCH (09:54)
[2019-08-08] MEDS: DOCUSATE SODIUM 100MG CAPSULE PO SCH (09:54)
[2019-08-08] MEDS: FERROUS SULFATE 325MG TABLET PO SCH ×2 (09:54→13:51)
[2019-08-08] MEDS: PANTOPRAZOLE SODIUM 40 MG/VIAL IV SCH (09:54)
[2019-08-08] MEDS: INSULIN GLARGINE UD 100 UNITS/ML SYR SUBCUT SCH (09:55)
[2019-08-08] MEDS: METOPROLOL TARTRATE 50MG TABLET PO SCH (09:55)
[2019-08-08] MEDS ORDERED: HYDROCODONE/ACETAMINOPHEN 5/325MG TABLET PO PRN (15:15)
== END 2019-08-08 16:51 | DRG 208 ==
LOC: MICUNO 18:34 → 5EST 08-02 20:40
PROVIDERS: ADMIT Neurological Surgery; ATTEND Internal Medicine Critical Care Medicine
PROC: 5A1945Z Respiratory Ventilation, 24-96 Consecutive Hours (ICD-10-PCS; principal; 2019-07-29)
PROC: 4A10X4Z Monitoring of Central Nervous Electrical Activity, External Approach (ICD-10-PCS; 2019-08-02)
DX: J96.00 Acute respiratory failure, unspecified whether with hypoxia or hypercapnia (principal); S06.6X9A Traumatic subarachnoid hemorrhage with loss of consciousness of unspecified duration, initial encounter; G82.50 Quadriplegia, unspecified; G93.41 Metabolic encephalopathy; S02.19XA Other fracture of base of skull, initial encounter for closed fracture; R47.01 Aphasia; S02.0XXA Fracture of vault of skull, initial encounter for closed fracture; S02.40EA Zygomatic fracture, right side, initial encounter for closed fracture; I10 Essential (primary) hypertension; E78.5 Hyperlipidemia, unspecified; E11.9 Type 2 diabetes mellitus without complications; I35.0 Nonrheumatic aortic (valve) stenosis; D69.6 Thrombocytopenia, unspecified; D64.9 Anemia, unspecified; E87.8 Other disorders of electrolyte and fluid balance, not elsewhere classified; I25.10 Atherosclerotic heart disease of native coronary artery without angina pectoris; W10.9XXA Fall (on) (from) unspecified stairs and steps, initial encounter; M48.02 Spinal stenosis, cervical region; R47.1 Dysarthria and anarthria; M47.812 Spondylosis without myelopathy or radiculopathy, cervical region; R04.0 Epistaxis; S00.10XA Contusion of unspecified eyelid and periocular area, initial encounter; Y93.89 Activity, other specified; Y92.89 Other specified places as the place of occurrence of the external cause; Y99.8 Other external cause status; I25.2 Old myocardial infarction; Z95.5 Presence of coronary angioplasty implant and graft; Z91.81 History of falling; Z79.4 Long term (current) use of insulin; Z78.1 Physical restraint status
CPT/HCPCS: 36415; 36600; 70551; 71045; 72141; 80048; 80076; 82140; 82270; 82375; 82607; 82728; 82805; 82962; 83036; 83540; 83550; 83735; 84439; 84443; 84478; 85025; 92610; 93005; 93306; 93880; 93970; 94003; 94640; 97110; 97112; 97116; 97162; 97167; 97530; 97535; A6261; C9113; J0360; J1815; J1953; J2270; J2704; J3480; J3490; J7050; J7060; J7121; J7620

== ENCOUNTER 2019-08-08 16:31 | Inpatient (IN) | payer BC ==
[~2019-08-08] VITALS: Ht 167.6 cm; Wt 56.7 kg
[~2019-08-08 16:31] MED LIST changes: +ATOR40TA70 MT; +CLOP75TA33 MT; +FERR325T6 MT; +GLIP10TA10 MT; +LANTUSUD SUBCUT
[2019-08-08] MEDS ORDERED: HYDRALAZINE HCL 25MG TABLET PO PRN (17:30)
[2019-08-08] MEDS ORDERED: BISACODYL 5MG TABLET PO PRN (17:30)
[2019-08-08] MEDS ORDERED: OXYMETAZOLINE HCL NASAL SPRAY 15ML BOTHNSTRLS PRN (17:30)
[2019-08-08] MEDS ORDERED: DEXTROSE 50% WATER 50ML SYRINGE IV PRN (17:30)
[2019-08-08 17:54] VITALS: BP 119/70
[2019-08-08] MEDS ORDERED: HYDROCODONE/ACETAMINOPHEN 10/325MG TABLET PO PRN (19:15)
[2019-08-08 20:00] VITALS: BP 138/72
[2019-08-08] MEDS: IPRATROPIUM/ALBUTEROL 0.5-3(2.5)MG/3ML NEB HHN SCH (20:40)
[2019-08-08] MEDS: BLOOD SUGAR DIAGNOSTIC STRIP TEST SCH (21:00)
[2019-08-08] MEDS ORDERED: LEVETIRACETAM 250 MG in SODIUM CHLORIDE 0.9% 100 ML IV SCH (21:00)
[2019-08-08] MEDS: GUAIFENESIN 600MG ER TABLET PO SCH (22:12)
[2019-08-08] MEDS: LEVETIRACETAM 500MG TABLET PO SCH (22:12)
[2019-08-08] MEDS: METOPROLOL TARTRATE 50MG TABLET PO SCH (22:13)
[2019-08-08] MEDS: INSULIN LISPRO 100 UNITS/ML SUBCUT SCH (22:49)
[2019-08-08] MEDS: INSULIN GLARGINE UD 100 UNITS/ML SYR SUBCUT SCH (23:46)
[2019-08-09] MEDS: IPRATROPIUM/ALBUTEROL 0.5-3(2.5)MG/3ML NEB HHN SCH ×4 (02:31→20:32)
[2019-08-09] MEDS: BLOOD SUGAR DIAGNOSTIC STRIP TEST SCH ×4 (06:16→21:00)
[2019-08-09] MEDS: INSULIN LISPRO 100 UNITS/ML SUBCUT SCH ×4 (06:16→23:04)
[2019-08-09 08:03] VITALS: BP 120/77
[2019-08-09] MEDS: PANTOPRAZOLE 40MG DR TABLET PO SCH (09:30)
[2019-08-09] MEDS: METOPROLOL TARTRATE 50MG TABLET PO SCH ×2 (09:30→22:03)
[2019-08-09] MEDS: LEVETIRACETAM 500MG TABLET PO SCH ×2 (09:30→22:01)
[2019-08-09] MEDS: FERROUS SULFATE 325MG TABLET PO SCH ×3 (09:31→17:05)
[2019-08-09] MEDS: DOCUSATE SODIUM 100MG CAPSULE PO SCH ×2 (09:31→17:08)
[2019-08-09] MEDS: GUAIFENESIN 600MG ER TABLET PO SCH ×2 (09:31→22:03)
[2019-08-09 20:00] VITALS: BP 124/66
[2019-08-09] MEDS: HYDROCODONE/ACETAMINOPHEN 5/325MG TABLET PO PRN (22:02)
[2019-08-09] MEDS: INSULIN GLARGINE UD 100 UNITS/ML SYR SUBCUT SCH (23:36)
[2019-08-10] MEDS: IPRATROPIUM/ALBUTEROL 0.5-3(2.5)MG/3ML NEB HHN SCH ×4 (02:14→21:13)
[2019-08-10] MEDS: INSULIN LISPRO 100 UNITS/ML SUBCUT SCH ×5 (06:44→21:31)
[2019-08-10] MEDS: BLOOD SUGAR DIAGNOSTIC STRIP TEST SCH ×4 (07:28→21:32)
[2019-08-10 08:01] VITALS: BP 110/70
[2019-08-10] MEDS: LEVETIRACETAM 500MG TABLET PO SCH ×2 (08:11→20:35)
[2019-08-10] MEDS: PANTOPRAZOLE 40MG DR TABLET PO SCH (08:11)
[2019-08-10] MEDS: METOPROLOL TARTRATE 50MG TABLET PO SCH ×2 (08:11→20:37)
[2019-08-10] MEDS: FERROUS SULFATE 325MG TABLET PO SCH ×3 (08:11→16:31)
[2019-08-10] MEDS: DOCUSATE SODIUM 100MG CAPSULE PO SCH ×2 (08:11→16:31)
[2019-08-10] MEDS: GUAIFENESIN 600MG ER TABLET PO SCH ×2 (08:11→20:37)
[2019-08-10 15:44] LABS: HEMATOCRIT. 35.1 % (42.0-52.0); HEMOGLOBIN. 11.9 g/dL (14.0-18.0); LYMPHOCYTES % 12.7 % (20.0-50.0); MEAN CORPUSCULAR HEMOGLOBIN 28.6 pg (28.0-32.0); MEAN CORPUSCULAR VOLUME 84.5 fL (80.0-94.0); MONOCYTES % 5.1 % (2.0-8.0); NEUTROPHILS % 77.2 % (40.0-76.0); PLATELET 373 x1000/uL (130-400); RED BLOOD CELL COUNT 4.15 mill/uL (4.7-6.1); RED CELL DISTRIBUTION WIDTH 15.9 % (11.6-14.6)
[2019-08-10 16:02] LABS: CHLORIDE 105 mEq/L (98-107)
[2019-08-10 20:00] VITALS: BP 139/73
[2019-08-10] MEDS: HYDROCODONE/ACETAMINOPHEN 5/325MG TABLET PO PRN (20:48)
[2019-08-10] MEDS: INSULIN GLARGINE UD 100 UNITS/ML SYR SUBCUT SCH (22:14)
[2019-08-11] MEDS: IPRATROPIUM/ALBUTEROL 0.5-3(2.5)MG/3ML NEB HHN SCH ×4 (01:26→20:32)
[2019-08-11] MEDS: BLOOD SUGAR DIAGNOSTIC STRIP TEST SCH ×4 (06:27→21:45)
[2019-08-11] MEDS: INSULIN LISPRO 100 UNITS/ML SUBCUT SCH ×7 (07:14→21:51)
[2019-08-11 08:00] VITALS: BP 113/67
[2019-08-11] MEDS: FERROUS SULFATE 325MG TABLET PO SCH ×3 (09:27→16:14)
[2019-08-11] MEDS: GUAIFENESIN 600MG ER TABLET PO SCH ×2 (09:27→21:45)
[2019-08-11] MEDS: DOCUSATE SODIUM 100MG CAPSULE PO SCH ×2 (09:27→16:14)
[2019-08-11] MEDS: LEVETIRACETAM 500MG TABLET PO SCH ×2 (09:27→21:45)
[2019-08-11] MEDS: METOPROLOL TARTRATE 50MG TABLET PO SCH ×2 (09:27→21:45)
[2019-08-11] MEDS: PANTOPRAZOLE 40MG DR TABLET PO SCH (09:27)
[2019-08-11 20:00] VITALS: BP 150/73
[2019-08-11] MEDS: FAMOTIDINE 20MG TABLET PO SCH (21:45)
[2019-08-11] MEDS: INSULIN GLARGINE UD 100 UNITS/ML SYR SUBCUT SCH (21:51)
[2019-08-12] MEDS: IPRATROPIUM/ALBUTEROL 0.5-3(2.5)MG/3ML NEB HHN SCH ×4 (01:57→18:00)
[2019-08-12] MEDS: INSULIN LISPRO 100 UNITS/ML SUBCUT SCH ×7 (05:51→21:51)
[2019-08-12] MEDS: BLOOD SUGAR DIAGNOSTIC STRIP TEST SCH ×4 (05:51→20:47)
[2019-08-12 08:00] VITALS: BP 107/59
[2019-08-12] MEDS: DOCUSATE SODIUM 100MG CAPSULE PO SCH ×2 (10:04→18:38)
[2019-08-12] MEDS: METOPROLOL TARTRATE 50MG TABLET PO SCH ×2 (10:04→20:47)
[2019-08-12] MEDS: LEVETIRACETAM 500MG TABLET PO SCH ×2 (10:04→20:47)
[2019-08-12] MEDS: GUAIFENESIN 600MG ER TABLET PO SCH ×2 (10:04→20:46)
[2019-08-12] MEDS: FERROUS SULFATE 325MG TABLET PO SCH ×3 (10:04→18:40)
[2019-08-12] MEDS: FAMOTIDINE 20MG TABLET PO SCH ×2 (10:04→20:47)
[2019-08-12] MEDS ORDERED: NA PHOS,M-B/NA PHOS,DI-BA ENEMA 118ML PR NR (11:30)
[2019-08-12 20:00] VITALS: BP 119/58
[2019-08-12] MEDS: INSULIN GLARGINE UD 100 UNITS/ML SYR SUBCUT SCH (21:50)
[2019-08-13] MEDS: IPRATROPIUM/ALBUTEROL 0.5-3(2.5)MG/3ML NEB HHN SCH ×4 (03:00→22:02)
[2019-08-13] MEDS: BLOOD SUGAR DIAGNOSTIC STRIP TEST SCH ×4 (06:03→20:25)
[2019-08-13] MEDS: INSULIN LISPRO 100 UNITS/ML SUBCUT SCH ×7 (06:42→21:29)
[2019-08-13 08:00] VITALS: BP 132/73
[2019-08-13 08:07] VITALS: BP 132/73
[2019-08-13] MEDS: FAMOTIDINE 20MG TABLET PO SCH ×2 (08:33→20:25)
[2019-08-13] MEDS: DOCUSATE SODIUM 100MG CAPSULE PO SCH ×2 (08:33→17:24)
[2019-08-13] MEDS: FERROUS SULFATE 325MG TABLET PO SCH ×3 (08:33→17:24)
[2019-08-13] MEDS: METOPROLOL TARTRATE 50MG TABLET PO SCH ×2 (08:33→20:25)
[2019-08-13] MEDS: GUAIFENESIN 600MG ER TABLET PO SCH ×2 (08:33→20:25)
[2019-08-13] MEDS: LEVETIRACETAM 500MG TABLET PO SCH ×2 (08:33→20:24)
[2019-08-13 20:00] VITALS: BP 122/81
[2019-08-13] MEDS: INSULIN GLARGINE UD 100 UNITS/ML SYR SUBCUT SCH (21:28)
[2019-08-14] MEDS: IPRATROPIUM/ALBUTEROL 0.5-3(2.5)MG/3ML NEB HHN SCH ×4 (00:40→20:35)
[2019-08-14] MEDS: BLOOD SUGAR DIAGNOSTIC STRIP TEST SCH ×4 (05:37→21:37)
[2019-08-14] MEDS: INSULIN LISPRO 100 UNITS/ML SUBCUT SCH ×7 (06:54→21:44)
[2019-08-14 08:00] VITALS: BP 117/65
[2019-08-14] MEDS: LEVETIRACETAM 500MG TABLET PO SCH ×2 (08:19→21:39)
[2019-08-14] MEDS: GUAIFENESIN 600MG ER TABLET PO SCH ×2 (08:20→21:39)
[2019-08-14] MEDS: METOPROLOL TARTRATE 50MG TABLET PO SCH ×2 (08:20→21:39)
[2019-08-14] MEDS: DOCUSATE SODIUM 100MG CAPSULE PO SCH ×2 (08:20→17:38)
[2019-08-14] MEDS: FERROUS SULFATE 325MG TABLET PO SCH ×3 (08:20→17:37)
[2019-08-14 08:54] LABS: BASOPHILS % 0.7 % (0.0-2.0); EOSINOPHILS % 5.2 % (0.0-5.0); HEMATOCRIT. 35.5 % (42.0-52.0); LYMPHOCYTES % 16.9 % (20.0-50.0); MEAN CORPUSCULAR HEMOGLOBIN 28.2 pg (28.0-32.0); MEAN CORPUSCULAR VOLUME 83.4 fL (80.0-94.0); MEAN PLATELET VOLUME 9.5 fl (7.4-10.4); MONOCYTES % 4.8 % (2.0-8.0); NEUTROPHILS % 72.4 % (40.0-76.0); PLATELET 313 x1000/uL (130-400); RED BLOOD CELL COUNT 4.26 mill/uL (4.7-6.1); RED CELL DISTRIBUTION WIDTH 16.1 % (11.6-14.6)
[2019-08-14] MEDS: FAMOTIDINE 20MG TABLET PO SCH ×2 (09:18→21:39)
[2019-08-14 10:23] LABS: CHLORIDE 108 mEq/L (98-107)
[2019-08-14 10:30] LABS: PHOSPHORUS 3.2 mg/dL (2.5-4.9)
[2019-08-14 20:00] VITALS: BP 134/83
[2019-08-14] MEDS: INSULIN GLARGINE UD 100 UNITS/ML SYR SUBCUT SCH (21:44)
[2019-08-15] MEDS: IPRATROPIUM/ALBUTEROL 0.5-3(2.5)MG/3ML NEB HHN SCH ×4 (01:36→21:35)
[2019-08-15] MEDS: BLOOD SUGAR DIAGNOSTIC STRIP TEST SCH ×4 (06:00→21:26)
[2019-08-15] MEDS: INSULIN LISPRO 100 UNITS/ML SUBCUT SCH ×7 (06:23→22:17)
[2019-08-15 08:00] VITALS: BP 134/83
[2019-08-15] MEDS: LEVETIRACETAM 500MG TABLET PO SCH ×2 (08:22→22:13)
[2019-08-15] MEDS: GUAIFENESIN 600MG ER TABLET PO SCH ×2 (08:22→22:14)
[2019-08-15] MEDS: FERROUS SULFATE 325MG TABLET PO SCH ×3 (08:22→17:37)
[2019-08-15] MEDS: METOPROLOL TARTRATE 50MG TABLET PO SCH ×2 (08:22→21:00)
[2019-08-15] MEDS: DOCUSATE SODIUM 100MG CAPSULE PO SCH ×2 (08:22→17:37)
[2019-08-15] MEDS: FAMOTIDINE 20MG TABLET PO SCH ×2 (08:23→22:14)
[2019-08-15] MEDS: ENTECAVIR 0.5MG TABLET PO SCH (14:01)
[2019-08-15 20:00] VITALS: BP 118/62
[2019-08-15] MEDS: INSULIN GLARGINE UD 100 UNITS/ML SYR SUBCUT SCH (22:16)
[2019-08-16] MEDS: IPRATROPIUM/ALBUTEROL 0.5-3(2.5)MG/3ML NEB HHN SCH ×4 (03:07→20:56)
[2019-08-16] MEDS: BLOOD SUGAR DIAGNOSTIC STRIP TEST SCH ×4 (05:46→21:00)
[2019-08-16] MEDS: INSULIN LISPRO 100 UNITS/ML SUBCUT SCH ×7 (06:20→22:42)
[2019-08-16 08:00] VITALS: BP 130/63
[2019-08-16] MEDS ORDERED: NON FORMULARY PATIENT HOME MED XX SCH (09:00)
[2019-08-16] MEDS: GUAIFENESIN 600MG ER TABLET PO SCH ×2 (09:00→21:00)
[2019-08-16] MEDS: LEVETIRACETAM 500MG TABLET PO SCH ×2 (09:01→21:00)
[2019-08-16] MEDS: DOCUSATE SODIUM 100MG CAPSULE PO SCH ×2 (09:01→17:42)
[2019-08-16] MEDS: FERROUS SULFATE 325MG TABLET PO SCH ×3 (09:01→17:42)
[2019-08-16] MEDS: METOPROLOL TARTRATE 50MG TABLET PO SCH ×2 (09:02→21:00)
[2019-08-16] MEDS: ENTECAVIR 0.5MG TABLET PO SCH (09:07)
[2019-08-16] MEDS: FAMOTIDINE 20MG TABLET PO SCH ×2 (09:10→22:24)
[2019-08-16 20:00] VITALS: BP 130/66
[2019-08-16] MEDS: INSULIN GLARGINE UD 100 UNITS/ML SYR SUBCUT SCH (22:45)
[2019-08-17] MEDS: IPRATROPIUM/ALBUTEROL 0.5-3(2.5)MG/3ML NEB HHN SCH ×5 (00:52→22:22)
[2019-08-17] MEDS: BLOOD SUGAR DIAGNOSTIC STRIP TEST SCH ×4 (06:30→21:45)
[2019-08-17 07:57] VITALS: BP 120/68
[2019-08-17] MEDS: METOPROLOL TARTRATE 50MG TABLET PO SCH ×2 (09:26→22:07)
[2019-08-17] MEDS: GUAIFENESIN 600MG ER TABLET PO SCH ×2 (09:27→22:08)
[2019-08-17] MEDS: DOCUSATE SODIUM 100MG CAPSULE PO SCH ×2 (09:27→17:08)
[2019-08-17] MEDS: FERROUS SULFATE 325MG TABLET PO SCH ×3 (09:27→17:08)
[2019-08-17] MEDS: FAMOTIDINE 20MG TABLET PO SCH ×2 (09:27→22:07)
[2019-08-17] MEDS: LEVETIRACETAM 500MG TABLET PO SCH ×2 (09:27→22:07)
[2019-08-17] MEDS: ENTECAVIR 0.5MG TABLET PO SCH (09:31)
[2019-08-17] MEDS: INSULIN LISPRO 100 UNITS/ML SUBCUT SCH ×7 (09:44→22:25)
[2019-08-17 20:00] VITALS: BP 130/75
[2019-08-17] MEDS: INSULIN GLARGINE UD 100 UNITS/ML SYR SUBCUT SCH (22:25)
[2019-08-18] MEDS: IPRATROPIUM/ALBUTEROL 0.5-3(2.5)MG/3ML NEB HHN SCH ×3 (01:20→16:10)
[2019-08-18] MEDS: BLOOD SUGAR DIAGNOSTIC STRIP TEST SCH ×4 (06:43→21:00)
[2019-08-18] MEDS: INSULIN LISPRO 100 UNITS/ML SUBCUT SCH ×7 (07:00→22:56)
[2019-08-18 08:00] VITALS: BP 123/69
[2019-08-18] MEDS: METOPROLOL TARTRATE 50MG TABLET PO SCH ×2 (08:50→22:35)
[2019-08-18] MEDS: LEVETIRACETAM 500MG TABLET PO SCH ×2 (08:50→22:34)
[2019-08-18] MEDS: FERROUS SULFATE 325MG TABLET PO SCH ×3 (08:50→16:38)
[2019-08-18] MEDS: GUAIFENESIN 600MG ER TABLET PO SCH ×2 (08:50→22:34)
[2019-08-18] MEDS: DOCUSATE SODIUM 100MG CAPSULE PO SCH ×2 (08:50→16:38)
[2019-08-18] MEDS: FAMOTIDINE 20MG TABLET PO SCH ×2 (08:50→22:34)
[2019-08-18] MEDS: ENTECAVIR 0.5MG TABLET PO SCH (08:52)
[2019-08-18 20:00] VITALS: BP 118/69
[2019-08-18] MEDS ORDERED: NA PHOS,M-B/NA PHOS,DI-BA ENEMA 118ML PR NR (20:45)
[2019-08-18] MEDS: INSULIN GLARGINE UD 100 UNITS/ML SYR SUBCUT SCH (22:53)
[2019-08-19] MEDS: IPRATROPIUM/ALBUTEROL 0.5-3(2.5)MG/3ML NEB HHN SCH ×4 (03:16→20:20)
[2019-08-19] MEDS: BLOOD SUGAR DIAGNOSTIC STRIP TEST SCH ×4 (05:53→21:48)
[2019-08-19] MEDS: INSULIN LISPRO 100 UNITS/ML SUBCUT SCH ×7 (07:00→21:59)
[2019-08-19 08:13] VITALS: BP 113/69
[2019-08-19] MEDS: GUAIFENESIN 600MG ER TABLET PO SCH ×2 (09:04→21:47)
[2019-08-19] MEDS: FERROUS SULFATE 325MG TABLET PO SCH ×3 (09:04→16:25)
[2019-08-19] MEDS: DOCUSATE SODIUM 100MG CAPSULE PO SCH ×2 (09:04→16:25)
[2019-08-19] MEDS: LEVETIRACETAM 500MG TABLET PO SCH ×2 (09:04→21:47)
[2019-08-19] MEDS: ENTECAVIR 0.5MG TABLET PO SCH (09:04)
[2019-08-19] MEDS: METOPROLOL TARTRATE 50MG TABLET PO SCH ×2 (09:05→21:48)
[2019-08-19] MEDS: FAMOTIDINE 20MG TABLET PO SCH ×2 (13:08→21:47)
[2019-08-19 20:00] VITALS: BP 154/69
[2019-08-19] MEDS: INSULIN GLARGINE UD 100 UNITS/ML SYR SUBCUT SCH (22:26)
[2019-08-20] MEDS: IPRATROPIUM/ALBUTEROL 0.5-3(2.5)MG/3ML NEB HHN SCH ×2 (00:39→20:51)
[2019-08-20] MEDS: BLOOD SUGAR DIAGNOSTIC STRIP TEST SCH ×4 (06:24→20:50)
[2019-08-20] MEDS: INSULIN LISPRO 100 UNITS/ML SUBCUT SCH ×7 (06:33→21:35)
[2019-08-20 08:13] VITALS: BP 119/64
[2019-08-20] MEDS: METOPROLOL TARTRATE 50MG TABLET PO SCH ×2 (08:37→20:50)
[2019-08-20] MEDS: ENTECAVIR 0.5MG TABLET PO SCH (08:37)
[2019-08-20] MEDS: GUAIFENESIN 600MG ER TABLET PO SCH ×2 (08:37→20:49)
[2019-08-20] MEDS: LEVETIRACETAM 500MG TABLET PO SCH ×2 (08:37→20:50)
[2019-08-20] MEDS: FAMOTIDINE 20MG TABLET PO SCH ×2 (08:37→20:50)
[2019-08-20] MEDS: FERROUS SULFATE 325MG TABLET PO SCH ×3 (08:37→16:54)
[2019-08-20] MEDS: DOCUSATE SODIUM 100MG CAPSULE PO SCH ×2 (08:37→16:54)
[2019-08-20 20:00] VITALS: BP 118/73
[2019-08-20] MEDS: INSULIN GLARGINE UD 100 UNITS/ML SYR SUBCUT SCH (21:36)
[2019-08-21] MEDS: IPRATROPIUM/ALBUTEROL 0.5-3(2.5)MG/3ML NEB HHN SCH ×4 (01:05→20:50)
[2019-08-21] MEDS: BLOOD SUGAR DIAGNOSTIC STRIP TEST SCH ×4 (05:35→21:42)
[2019-08-21] MEDS: INSULIN LISPRO 100 UNITS/ML SUBCUT SCH ×6 (06:47→16:10)
[2019-08-21 08:21] VITALS: BP 111/74
[2019-08-21] MEDS: GUAIFENESIN 600MG ER TABLET PO SCH ×2 (08:57→22:10)
[2019-08-21] MEDS: LEVETIRACETAM 500MG TABLET PO SCH ×2 (08:58→22:10)
[2019-08-21] MEDS: DOCUSATE SODIUM 100MG CAPSULE PO SCH ×2 (08:58→17:11)
[2019-08-21] MEDS: METOPROLOL TARTRATE 50MG TABLET PO SCH ×2 (08:58→21:00)
[2019-08-21] MEDS: FERROUS SULFATE 325MG TABLET PO SCH ×3 (08:58→17:11)
[2019-08-21] MEDS: FAMOTIDINE 20MG TABLET PO SCH ×2 (08:58→22:10)
[2019-08-21] MEDS: ENTECAVIR 0.5MG TABLET PO SCH (08:58)
[2019-08-21 20:00] VITALS: BP 115/64
[2019-08-21] MEDS: INSULIN GLARGINE UD 100 UNITS/ML SYR SUBCUT SCH (22:09)
[2019-08-22] MEDS: IPRATROPIUM/ALBUTEROL 0.5-3(2.5)MG/3ML NEB HHN SCH ×4 (01:54→21:38)
[2019-08-22] MEDS: BLOOD SUGAR DIAGNOSTIC STRIP TEST SCH ×4 (06:02→21:29)
[2019-08-22] MEDS: INSULIN LISPRO (LOW DOSE) 100 UNITS/ML SUBCUT SCH ×3 (06:23→17:00)
[2019-08-22] MEDS: INSULIN LISPRO 100 UNITS/ML SUBCUT SCH ×3 (06:23→17:00)
[2019-08-22] MEDS ORDERED: INSULIN LISPRO 100 UNITS/ML SUBCUT SCH (07:00)
[2019-08-22 07:45] VITALS: BP 125/72
[2019-08-22 07:52] LABS: EOSINOPHILS % 7.9 % (0.0-5.0); HEMATOCRIT. 38.8 % (42.0-52.0); HEMOGLOBIN. 12.8 g/dL (14.0-18.0); MEAN CORPUSCULAR HEMOGLOBIN 27.7 pg (28.0-32.0); MEAN PLATELET VOLUME 10.1 fl (7.4-10.4); MONOCYTES % 7.2 % (2.0-8.0); NEUTROPHILS % 64.9 % (40.0-76.0); PLATELET 203 x1000/uL (130-400); RED BLOOD CELL COUNT 4.63 mill/uL (4.7-6.1); RED CELL DISTRIBUTION WIDTH 16.6 % (11.6-14.6)
[2019-08-22 07:59] LABS: CHLORIDE 108 mEq/L (98-107)
[2019-08-22 08:16] LABS: T4 FREE 0.98 ng/dL (0.76-1.46)
[2019-08-22] MEDS: FERROUS SULFATE 325MG TABLET PO SCH ×3 (08:47→17:17)
[2019-08-22] MEDS: FAMOTIDINE 20MG TABLET PO SCH ×2 (08:47→20:21)
[2019-08-22] MEDS: METOPROLOL TARTRATE 50MG TABLET PO SCH ×2 (08:48→20:22)
[2019-08-22] MEDS: LEVETIRACETAM 500MG TABLET PO SCH ×2 (08:48→20:21)
[2019-08-22] MEDS: DOCUSATE SODIUM 100MG CAPSULE PO SCH ×2 (08:48→17:17)
[2019-08-22] MEDS: GUAIFENESIN 600MG ER TABLET PO SCH ×2 (08:48→20:21)
[2019-08-22] MEDS: ENTECAVIR 0.5MG TABLET PO SCH (08:53)
[2019-08-22 20:00] VITALS: BP 131/80
[2019-08-22] MEDS: INSULIN GLARGINE UD 100 UNITS/ML SYR SUBCUT SCH (21:59)
[2019-08-23] MEDS: IPRATROPIUM/ALBUTEROL 0.5-3(2.5)MG/3ML NEB HHN SCH ×4 (01:23→20:46)
[2019-08-23] MEDS: BLOOD SUGAR DIAGNOSTIC STRIP TEST SCH ×4 (06:28→21:36)
[2019-08-23] MEDS: INSULIN LISPRO (LOW DOSE) 100 UNITS/ML SUBCUT SCH ×3 (06:29→17:26)
[2019-08-23 07:13] LABS: BASOPHILS % 0.9 % (0.0-2.0); EOSINOPHILS % 8.1 % (0.0-5.0); HEMATOCRIT. 39.5 % (42.0-52.0); HEMOGLOBIN. 12.9 g/dL (14.0-18.0); LYMPHOCYTES % 20.8 % (20.0-50.0); MEAN CORPUSCULAR HEMOGLOBIN 27.7 pg (28.0-32.0); MEAN CORPUSCULAR VOLUME 84.8 fL (80.0-94.0); MONOCYTES % 7.8 % (2.0-8.0); NEUTROPHILS % 62.4 % (40.0-76.0); PLATELET 183 x1000/uL (130-400); RED BLOOD CELL COUNT 4.66 mill/uL (4.7-6.1); RED CELL DISTRIBUTION WIDTH 16.8 % (11.6-14.6)
[2019-08-23 07:52] LABS: CHLORIDE 109 mEq/L (98-107)
[2019-08-23 08:00] VITALS: BP 125/71
[2019-08-23] MEDS: GUAIFENESIN 600MG ER TABLET PO SCH ×2 (08:22→21:35)
[2019-08-23] MEDS: DOCUSATE SODIUM 100MG CAPSULE PO SCH ×2 (08:23→17:23)
[2019-08-23] MEDS: FERROUS SULFATE 325MG TABLET PO SCH ×3 (08:23→17:23)
[2019-08-23] MEDS: FAMOTIDINE 20MG TABLET PO SCH ×2 (08:23→21:35)
[2019-08-23] MEDS: METOPROLOL TARTRATE 50MG TABLET PO SCH ×2 (08:23→21:35)
[2019-08-23] MEDS: LEVETIRACETAM 500MG TABLET PO SCH ×2 (08:23→21:35)
[2019-08-23] MEDS: ENTECAVIR 0.5MG TABLET PO SCH (08:30)
[2019-08-23] MEDS: INSULIN LISPRO 100 UNITS/ML SUBCUT SCH ×3 (08:40→17:27)
[2019-08-23 20:00] VITALS: BP 120/71
[2019-08-23] MEDS: INSULIN GLARGINE UD 100 UNITS/ML SYR SUBCUT SCH (23:38)
[2019-08-24] MEDS: IPRATROPIUM/ALBUTEROL 0.5-3(2.5)MG/3ML NEB HHN SCH ×3 (00:27→20:42)
[2019-08-24] MEDS: BLOOD SUGAR DIAGNOSTIC STRIP TEST SCH ×4 (05:55→21:27)
[2019-08-24] MEDS: INSULIN LISPRO (LOW DOSE) 100 UNITS/ML SUBCUT SCH ×3 (06:08→11:41)
[2019-08-24 07:49] VITALS: BP 135/71
[2019-08-24] MEDS: FERROUS SULFATE 325MG TABLET PO SCH ×3 (08:59→17:21)
[2019-08-24] MEDS: FAMOTIDINE 20MG TABLET PO SCH ×2 (08:59→21:26)
[2019-08-24] MEDS: DOCUSATE SODIUM 100MG CAPSULE PO SCH ×2 (08:59→17:22)
[2019-08-24] MEDS: GUAIFENESIN 600MG ER TABLET PO SCH ×2 (08:59→21:26)
[2019-08-24] MEDS: METOPROLOL TARTRATE 50MG TABLET PO SCH ×2 (08:59→21:27)
[2019-08-24] MEDS: LEVETIRACETAM 500MG TABLET PO SCH ×2 (08:59→21:26)
[2019-08-24] MEDS: INSULIN LISPRO 100 UNITS/ML SUBCUT SCH ×3 (09:02→17:29)
[2019-08-24] MEDS: ENTECAVIR 0.5MG TABLET PO SCH (09:11)
[2019-08-24 20:00] VITALS: BP 139/68
[2019-08-24] MEDS: INSULIN GLARGINE UD 100 UNITS/ML SYR SUBCUT SCH (22:43)
[2019-08-25] MEDS: IPRATROPIUM/ALBUTEROL 0.5-3(2.5)MG/3ML NEB HHN SCH ×4 (02:20→21:22)
[2019-08-25] MEDS: BLOOD SUGAR DIAGNOSTIC STRIP TEST SCH ×4 (07:08→21:35)
[2019-08-25] MEDS: INSULIN LISPRO (LOW DOSE) 100 UNITS/ML SUBCUT SCH ×3 (07:23→17:00)
[2019-08-25 08:03] VITALS: BP 110/62
[2019-08-25] MEDS: FAMOTIDINE 20MG TABLET PO SCH ×2 (09:28→21:35)
[2019-08-25] MEDS: LEVETIRACETAM 500MG TABLET PO SCH ×2 (09:28→21:35)
[2019-08-25] MEDS: DOCUSATE SODIUM 100MG CAPSULE PO SCH ×2 (09:28→17:37)
[2019-08-25] MEDS: FERROUS SULFATE 325MG TABLET PO SCH ×3 (09:28→17:37)
[2019-08-25] MEDS: ENTECAVIR 0.5MG TABLET PO SCH (09:29)
[2019-08-25] MEDS: GUAIFENESIN 600MG ER TABLET PO SCH ×2 (09:29→21:34)
[2019-08-25] MEDS: METOPROLOL TARTRATE 50MG TABLET PO SCH ×2 (09:29→21:35)
[2019-08-25] MEDS: INSULIN LISPRO 100 UNITS/ML SUBCUT SCH ×3 (09:46→18:57)
[2019-08-25 20:00] VITALS: BP 118/69
[2019-08-25] MEDS: INSULIN GLARGINE UD 100 UNITS/ML SYR SUBCUT SCH (22:03)
[2019-08-26] MEDS: IPRATROPIUM/ALBUTEROL 0.5-3(2.5)MG/3ML NEB HHN SCH ×3 (02:00→22:45)
[2019-08-26] MEDS: BLOOD SUGAR DIAGNOSTIC STRIP TEST SCH ×4 (06:00→21:33)
[2019-08-26] MEDS: INSULIN LISPRO (LOW DOSE) 100 UNITS/ML SUBCUT SCH ×3 (06:01→18:02)
[2019-08-26 08:00] VITALS: BP 160/55
[2019-08-26] MEDS: FAMOTIDINE 20MG TABLET PO SCH ×2 (08:38→21:32)
[2019-08-26] MEDS: LEVETIRACETAM 500MG TABLET PO SCH ×2 (08:38→21:32)
[2019-08-26] MEDS: ENTECAVIR 0.5MG TABLET PO SCH (08:38)
[2019-08-26] MEDS: DOCUSATE SODIUM 100MG CAPSULE PO SCH ×2 (08:38→16:33)
[2019-08-26] MEDS: GUAIFENESIN 600MG ER TABLET PO SCH ×2 (08:39→21:32)
[2019-08-26] MEDS: METOPROLOL TARTRATE 50MG TABLET PO SCH ×2 (08:39→21:32)
[2019-08-26] MEDS: FERROUS SULFATE 325MG TABLET PO SCH ×3 (08:39→16:33)
[2019-08-26] MEDS: INSULIN LISPRO 100 UNITS/ML SUBCUT SCH ×3 (08:47→18:01)
[2019-08-26 20:00] VITALS: BP 137/75
[2019-08-26] MEDS: INSULIN GLARGINE UD 100 UNITS/ML SYR SUBCUT SCH (22:00)
[2019-08-27] MEDS: IPRATROPIUM/ALBUTEROL 0.5-3(2.5)MG/3ML NEB HHN SCH ×4 (01:16→20:37)
[2019-08-27] MEDS: BLOOD SUGAR DIAGNOSTIC STRIP TEST SCH ×4 (06:30→21:09)
[2019-08-27] MEDS: INSULIN LISPRO 100 UNITS/ML SUBCUT SCH ×3 (07:36→17:26)
[2019-08-27 07:51] VITALS: BP 123/62
[2019-08-27 08:00] VITALS: BP 123/62
[2019-08-27] MEDS: INSULIN LISPRO (LOW DOSE) 100 UNITS/ML SUBCUT SCH ×3 (09:00→17:26)
[2019-08-27] MEDS: METOPROLOL TARTRATE 50MG TABLET PO SCH (09:06)
[2019-08-27] MEDS: FERROUS SULFATE 325MG TABLET PO SCH ×3 (09:06→16:55)
[2019-08-27] MEDS: DOCUSATE SODIUM 100MG CAPSULE PO SCH ×2 (09:06→16:55)
[2019-08-27] MEDS: GUAIFENESIN 600MG ER TABLET PO SCH ×2 (09:06→21:00)
[2019-08-27] MEDS: LEVETIRACETAM 500MG TABLET PO SCH ×2 (09:06→21:00)
[2019-08-27] MEDS: ENTECAVIR 0.5MG TABLET PO SCH (09:06)
[2019-08-27] MEDS: FAMOTIDINE 20MG TABLET PO SCH ×2 (09:06→21:00)
[2019-08-27 20:00] VITALS: BP 99/50
[2019-08-27] MEDS: METOPROLOL TARTRATE 25MG TABLET PO SCH (21:00)
[2019-08-27] MEDS: INSULIN GLARGINE UD 100 UNITS/ML SYR SUBCUT SCH (22:00)
[2019-08-28] MEDS: IPRATROPIUM/ALBUTEROL 0.5-3(2.5)MG/3ML NEB HHN SCH ×3 (02:10→21:15)
[2019-08-28] MEDS: BLOOD SUGAR DIAGNOSTIC STRIP TEST SCH ×4 (07:06→21:36)
[2019-08-28 08:00] VITALS: BP 108/58
[2019-08-28] MEDS: FAMOTIDINE 20MG TABLET PO SCH ×2 (08:12→20:39)
[2019-08-28] MEDS: LEVETIRACETAM 500MG TABLET PO SCH ×2 (08:12→20:39)
[2019-08-28] MEDS: FERROUS SULFATE 325MG TABLET PO SCH ×3 (08:12→17:07)
[2019-08-28] MEDS: GUAIFENESIN 600MG ER TABLET PO SCH ×2 (08:12→20:39)
[2019-08-28] MEDS: DOCUSATE SODIUM 100MG CAPSULE PO SCH ×2 (08:13→17:07)
[2019-08-28] MEDS: INSULIN LISPRO 100 UNITS/ML SUBCUT SCH ×3 (08:16→17:20)
[2019-08-28] MEDS: INSULIN LISPRO (LOW DOSE) 100 UNITS/ML SUBCUT SCH ×3 (08:17→17:21)
[2019-08-28] MEDS: ENTECAVIR 0.5MG TABLET PO SCH (08:17)
[2019-08-28] MEDS: METOPROLOL TARTRATE 25MG TABLET PO SCH ×2 (08:17→20:39)
[2019-08-28 20:00] VITALS: BP 126/70
[2019-08-28] MEDS: INSULIN GLARGINE UD 100 UNITS/ML SYR SUBCUT SCH (21:40)
[2019-08-29] MEDS: IPRATROPIUM/ALBUTEROL 0.5-3(2.5)MG/3ML NEB HHN SCH ×4 (02:23→21:37)
[2019-08-29] MEDS: BLOOD SUGAR DIAGNOSTIC STRIP TEST SCH ×4 (06:19→21:00)
[2019-08-29] MEDS: INSULIN LISPRO (LOW DOSE) 100 UNITS/ML SUBCUT SCH ×3 (06:20→17:00)
[2019-08-29 07:10] LABS: BASOPHILS % 0.6 % (0.0-2.0); EOSINOPHILS % 8.1 % (0.0-5.0); HEMATOCRIT. 38.4 % (42.0-52.0); HEMOGLOBIN. 13.1 g/dL (14.0-18.0); LYMPHOCYTES % 16.1 % (20.0-50.0); MEAN CORPUSCULAR HEMOGLOBIN 28.8 pg (28.0-32.0); MEAN CORPUSCULAR VOLUME 84.7 fL (80.0-94.0); MEAN PLATELET VOLUME 9.9 fl (7.4-10.4); MONOCYTES % 6.9 % (2.0-8.0); NEUTROPHILS % 68.3 % (40.0-76.0); PLATELET 173 x1000/uL (130-400); RED BLOOD CELL COUNT 4.53 mill/uL (4.7-6.1); RED CELL DISTRIBUTION WIDTH 16.8 % (11.6-14.6)
[2019-08-29 07:22] LABS: CHLORIDE 109 mEq/L (98-107)
[2019-08-29 07:46] VITALS: BP 117/65
[2019-08-29] MEDS: FERROUS SULFATE 325MG TABLET PO SCH ×3 (08:50→17:42)
[2019-08-29] MEDS: LEVETIRACETAM 500MG TABLET PO SCH ×2 (08:50→22:07)
[2019-08-29] MEDS: GUAIFENESIN 600MG ER TABLET PO SCH ×2 (08:50→22:08)
[2019-08-29] MEDS: METOPROLOL TARTRATE 25MG TABLET PO SCH ×2 (08:50→22:08)
[2019-08-29] MEDS: FAMOTIDINE 20MG TABLET PO SCH ×2 (08:50→22:07)
[2019-08-29] MEDS: DOCUSATE SODIUM 100MG CAPSULE PO SCH ×2 (08:50→17:42)
[2019-08-29] MEDS: ENTECAVIR 0.5MG TABLET PO SCH (08:50)
[2019-08-29] MEDS: INSULIN LISPRO 100 UNITS/ML SUBCUT SCH ×3 (08:54→17:43)
[2019-08-29 20:00] VITALS: BP 125/67
[2019-08-29] MEDS: INSULIN GLARGINE UD 100 UNITS/ML SYR SUBCUT SCH (22:10)
[2019-08-30] MEDS: IPRATROPIUM/ALBUTEROL 0.5-3(2.5)MG/3ML NEB HHN SCH ×4 (02:08→21:01)
[2019-08-30] MEDS: INSULIN LISPRO 100 UNITS/ML SUBCUT SCH ×3 (07:00→18:17)
[2019-08-30] MEDS: BLOOD SUGAR DIAGNOSTIC STRIP TEST SCH ×4 (07:25→21:48)
[2019-08-30 08:00] VITALS: BP 143/80
[2019-08-30] MEDS: INSULIN LISPRO (LOW DOSE) 100 UNITS/ML SUBCUT SCH ×3 (08:22→16:54)
[2019-08-30] MEDS: GUAIFENESIN 600MG ER TABLET PO SCH ×2 (08:27→21:47)
[2019-08-30] MEDS: METOPROLOL TARTRATE 25MG TABLET PO SCH ×2 (08:28→21:48)
[2019-08-30] MEDS: DOCUSATE SODIUM 100MG CAPSULE PO SCH ×2 (08:29→17:55)
[2019-08-30] MEDS: FAMOTIDINE 20MG TABLET PO SCH ×2 (08:29→21:47)
[2019-08-30] MEDS: FERROUS SULFATE 325MG TABLET PO SCH ×3 (08:29→17:55)
[2019-08-30] MEDS: LEVETIRACETAM 500MG TABLET PO SCH ×2 (08:29→21:47)
[2019-08-30] MEDS: ENTECAVIR 0.5MG TABLET PO SCH (08:30)
[2019-08-30 20:00] VITALS: BP 124/75
[2019-08-30] MEDS: INSULIN GLARGINE UD 100 UNITS/ML SYR SUBCUT SCH (22:15)
[2019-08-31] MEDS: IPRATROPIUM/ALBUTEROL 0.5-3(2.5)MG/3ML NEB HHN SCH ×4 (00:53→20:05)
[2019-08-31] MEDS: BLOOD SUGAR DIAGNOSTIC STRIP TEST SCH ×4 (06:52→21:50)
[2019-08-31] MEDS: INSULIN LISPRO (LOW DOSE) 100 UNITS/ML SUBCUT SCH ×3 (06:52→16:33)
[2019-08-31 07:57] VITALS: BP 137/67
[2019-08-31] MEDS: LEVETIRACETAM 500MG TABLET PO SCH ×2 (08:13→21:49)
[2019-08-31] MEDS: GUAIFENESIN 600MG ER TABLET PO SCH ×2 (08:13→21:49)
[2019-08-31] MEDS: METOPROLOL TARTRATE 25MG TABLET PO SCH ×2 (08:13→21:54)
[2019-08-31] MEDS: FERROUS SULFATE 325MG TABLET PO SCH ×3 (08:13→16:38)
[2019-08-31] MEDS: FAMOTIDINE 20MG TABLET PO SCH ×2 (08:13→21:49)
[2019-08-31] MEDS: DOCUSATE SODIUM 100MG CAPSULE PO SCH ×2 (08:13→16:38)
[2019-08-31] MEDS: ENTECAVIR 0.5MG TABLET PO SCH (08:15)
[2019-08-31] MEDS: INSULIN LISPRO 100 UNITS/ML SUBCUT SCH ×3 (08:19→17:37)
[2019-08-31 20:00] VITALS: BP 115/63
[2019-08-31] MEDS: INSULIN GLARGINE UD 100 UNITS/ML SYR SUBCUT SCH (22:07)
[2019-09-01] MEDS: IPRATROPIUM/ALBUTEROL 0.5-3(2.5)MG/3ML NEB HHN SCH ×4 (01:50→21:05)
[2019-09-01] MEDS: BLOOD SUGAR DIAGNOSTIC STRIP TEST SCH ×4 (06:32→20:49)
[2019-09-01 07:47] VITALS: BP 124/70
[2019-09-01] MEDS: INSULIN LISPRO (LOW DOSE) 100 UNITS/ML SUBCUT SCH ×4 (07:47→16:24)
[2019-09-01] MEDS: INSULIN LISPRO 100 UNITS/ML SUBCUT SCH ×3 (07:48→17:20)
[2019-09-01] MEDS: ENTECAVIR 0.5MG TABLET PO SCH (08:21)
[2019-09-01] MEDS: FAMOTIDINE 20MG TABLET PO SCH ×2 (08:21→20:33)
[2019-09-01] MEDS: LEVETIRACETAM 500MG TABLET PO SCH ×2 (08:21→20:33)
[2019-09-01] MEDS: FERROUS SULFATE 325MG TABLET PO SCH ×3 (08:21→17:16)
[2019-09-01] MEDS: METOPROLOL TARTRATE 25MG TABLET PO SCH ×2 (08:21→20:34)
[2019-09-01] MEDS: GUAIFENESIN 600MG ER TABLET PO SCH ×2 (08:22→20:33)
[2019-09-01] MEDS: DOCUSATE SODIUM 100MG CAPSULE PO SCH ×2 (08:22→17:17)
[2019-09-01 20:00] VITALS: BP 128/73
[2019-09-01] MEDS: INSULIN GLARGINE UD 100 UNITS/ML SYR SUBCUT SCH (22:00)
[2019-09-02] MEDS: IPRATROPIUM/ALBUTEROL 0.5-3(2.5)MG/3ML NEB HHN SCH ×3 (05:18→20:53)
[2019-09-02] MEDS: INSULIN LISPRO 100 UNITS/ML SUBCUT SCH ×3 (07:58→17:37)
[2019-09-02 08:00] VITALS: BP 132/68
[2019-09-02] MEDS: ENTECAVIR 0.5MG TABLET PO SCH (08:15)
[2019-09-02] MEDS: GUAIFENESIN 600MG ER TABLET PO SCH ×2 (08:15→21:29)
[2019-09-02] MEDS: LEVETIRACETAM 500MG TABLET PO SCH ×2 (08:15→21:29)
[2019-09-02] MEDS: FAMOTIDINE 20MG TABLET PO SCH ×2 (08:15→21:29)
[2019-09-02] MEDS: FERROUS SULFATE 325MG TABLET PO SCH ×3 (08:15→17:31)
[2019-09-02] MEDS: DOCUSATE SODIUM 100MG CAPSULE PO SCH ×2 (08:15→17:31)
[2019-09-02] MEDS: METOPROLOL TARTRATE 25MG TABLET PO SCH ×2 (08:16→21:29)
[2019-09-02] MEDS: INSULIN LISPRO (LOW DOSE) 100 UNITS/ML SUBCUT SCH ×3 (08:16→17:37)
[2019-09-02] MEDS: BLOOD SUGAR DIAGNOSTIC STRIP TEST SCH ×3 (11:43→21:29)
[2019-09-02 20:00] VITALS: BP 125/68
[2019-09-02] MEDS: INSULIN GLARGINE UD 100 UNITS/ML SYR SUBCUT SCH (23:19)
[2019-09-03] MEDS: IPRATROPIUM/ALBUTEROL 0.5-3(2.5)MG/3ML NEB HHN SCH ×3 (01:25→20:48)
[2019-09-03] MEDS: BLOOD SUGAR DIAGNOSTIC STRIP TEST SCH ×4 (06:13→21:42)
[2019-09-03 07:50] VITALS: BP 121/70
[2019-09-03] MEDS: GUAIFENESIN 600MG ER TABLET PO SCH ×2 (08:52→21:42)
[2019-09-03] MEDS: FAMOTIDINE 20MG TABLET PO SCH ×2 (08:53→21:42)
[2019-09-03] MEDS: METOPROLOL TARTRATE 25MG TABLET PO SCH ×2 (08:53→21:42)
[2019-09-03] MEDS: LEVETIRACETAM 500MG TABLET PO SCH ×2 (08:53→21:42)
[2019-09-03] MEDS: FERROUS SULFATE 325MG TABLET PO SCH ×3 (08:53→16:51)
[2019-09-03] MEDS: DOCUSATE SODIUM 100MG CAPSULE PO SCH ×2 (08:53→16:51)
[2019-09-03] MEDS: ENTECAVIR 0.5MG TABLET PO SCH (08:54)
[2019-09-03] MEDS: INSULIN LISPRO 100 UNITS/ML SUBCUT SCH ×3 (08:58→17:25)
[2019-09-03] MEDS: INSULIN LISPRO (LOW DOSE) 100 UNITS/ML SUBCUT SCH ×3 (08:59→17:25)
[2019-09-03] MEDS ORDERED: DIPHENHYDRAMINE 25MG CAPSULE PO PRN (18:15)
[2019-09-03 20:00] VITALS: BP 116/16
[2019-09-03] MEDS: INSULIN GLARGINE UD 100 UNITS/ML SYR SUBCUT SCH (21:49)
[2019-09-03] MEDS: ACETAMINOPHEN 325MG SUPP PR PRN (23:28)
[2019-09-04] MEDS: IPRATROPIUM/ALBUTEROL 0.5-3(2.5)MG/3ML NEB HHN SCH ×4 (02:44→21:00)
[2019-09-04] MEDS: BLOOD SUGAR DIAGNOSTIC STRIP TEST SCH ×4 (07:00→21:00)
[2019-09-04] MEDS: INSULIN LISPRO 100 UNITS/ML SUBCUT SCH ×3 (07:03→17:36)
[2019-09-04] MEDS: INSULIN LISPRO (LOW DOSE) 100 UNITS/ML SUBCUT SCH ×3 (07:27→17:34)
[2019-09-04 07:37] VITALS: BP_SYST 110; BP_DIAS 6; BP_DIAS 60
[2019-09-04] MEDS: FAMOTIDINE 20MG TABLET PO SCH ×2 (08:18→22:03)
[2019-09-04] MEDS: METOPROLOL TARTRATE 25MG TABLET PO SCH ×3 (08:18→22:03)
[2019-09-04] MEDS: ENTECAVIR 0.5MG TABLET PO SCH (08:18)
[2019-09-04] MEDS: DOCUSATE SODIUM 100MG CAPSULE PO SCH ×2 (08:19→17:32)
[2019-09-04] MEDS: GUAIFENESIN 600MG ER TABLET PO SCH ×2 (08:19→22:03)
[2019-09-04] MEDS: FERROUS SULFATE 325MG TABLET PO SCH ×3 (08:19→17:32)
[2019-09-04] MEDS: LEVETIRACETAM 500MG TABLET PO SCH ×2 (08:19→22:03)
[2019-09-04] MEDS: ACETAMINOPHEN 325MG SUPP PR PRN (19:16)
[2019-09-04 20:00] VITALS: BP 132/70
[2019-09-04] MEDS: INSULIN GLARGINE UD 100 UNITS/ML SYR SUBCUT SCH (22:05)
[2019-09-05] MEDS: BLOOD SUGAR DIAGNOSTIC STRIP TEST SCH ×4 (06:03→21:00)
[2019-09-05] MEDS: INSULIN LISPRO (LOW DOSE) 100 UNITS/ML SUBCUT SCH ×3 (06:04→18:09)
[2019-09-05 07:36] LABS: BASOPHILS % 0.8 % (0.0-2.0); EOSINOPHILS % 7.9 % (0.0-5.0); HEMATOCRIT. 39.3 % (42.0-52.0); HEMOGLOBIN. 13.3 g/dL (14.0-18.0); LYMPHOCYTES % 17.8 % (20.0-50.0); MEAN CORPUSCULAR VOLUME 85.5 fL (80.0-94.0); MEAN PLATELET VOLUME 10.5 fl (7.4-10.4); NEUTROPHILS % 65.5 % (40.0-76.0); PLATELET 221 x1000/uL (130-400); RED BLOOD CELL COUNT 4.59 mill/uL (4.7-6.1); RED CELL DISTRIBUTION WIDTH 16.2 % (11.6-14.6)
[2019-09-05 07:55] VITALS: BP 131/77
[2019-09-05 08:07] LABS: CHLORIDE 109 mEq/L (98-107)
[2019-09-05] MEDS: GUAIFENESIN 600MG ER TABLET PO SCH ×2 (08:45→22:16)
[2019-09-05] MEDS: ENTECAVIR 0.5MG TABLET PO SCH (08:45)
[2019-09-05] MEDS: FAMOTIDINE 20MG TABLET PO SCH ×2 (08:46→22:15)
[2019-09-05] MEDS: LEVETIRACETAM 500MG TABLET PO SCH (08:46)
[2019-09-05] MEDS: FERROUS SULFATE 325MG TABLET PO SCH ×3 (08:46→17:09)
[2019-09-05] MEDS: METOPROLOL TARTRATE 25MG TABLET PO SCH ×2 (08:47→22:17)
[2019-09-05] MEDS: DOCUSATE SODIUM 100MG CAPSULE PO SCH ×2 (08:48→17:09)
[2019-09-05] MEDS: INSULIN LISPRO 100 UNITS/ML SUBCUT SCH ×3 (09:48→18:10)
[2019-09-05] MEDS ORDERED: ACETAMINOPHEN 325MG SUPP PR PRN (12:15)
[2019-09-05] MEDS ORDERED: DEXTROSE 50% WATER 50ML SYRINGE IV PRN (12:15)
[2019-09-05] MEDS ORDERED: BISACODYL 5MG TABLET PO PRN (12:15)
[2019-09-05] MEDS: IPRATROPIUM/ALBUTEROL 0.5-3(2.5)MG/3ML NEB HHN SCH ×2 (12:31→20:15)
[2019-09-05] MEDS ORDERED: HYDRALAZINE HCL 25MG TABLET PO PRN (13:45)
[2019-09-05] MEDS ORDERED: HYDRALAZINE HCL 25MG TABLET PO SCH (14:00)
[2019-09-05 20:00] VITALS: BP 152/67
[2019-09-05] MEDS: INSULIN GLARGINE UD 100 UNITS/ML SYR SUBCUT SCH (22:00)
[2019-09-05] MEDS: LEVETIRACETAM 250MG TABLET PO SCH (22:16)
[2019-09-06] MEDS: IPRATROPIUM/ALBUTEROL 0.5-3(2.5)MG/3ML NEB HHN SCH ×4 (01:34→22:36)
[2019-09-06] MEDS: BLOOD SUGAR DIAGNOSTIC STRIP TEST SCH ×4 (05:40→21:00)
[2019-09-06] MEDS: INSULIN LISPRO (LOW DOSE) 100 UNITS/ML SUBCUT SCH ×3 (06:20→18:34)
[2019-09-06 08:00] VITALS: BP 121/77
[2019-09-06] MEDS: FERROUS SULFATE 325MG TABLET PO SCH ×3 (08:42→16:07)
[2019-09-06] MEDS: METOPROLOL TARTRATE 25MG TABLET PO SCH ×2 (08:42→21:00)
[2019-09-06] MEDS: FAMOTIDINE 20MG TABLET PO SCH ×2 (08:42→22:12)
[2019-09-06] MEDS: DOCUSATE SODIUM 100MG CAPSULE PO SCH ×2 (08:43→16:07)
[2019-09-06] MEDS: LEVETIRACETAM 250MG TABLET PO SCH ×2 (08:43→22:12)
[2019-09-06] MEDS: GUAIFENESIN 600MG ER TABLET PO SCH ×2 (08:43→22:11)
[2019-09-06] MEDS: ENTECAVIR 0.5MG TABLET PO SCH (08:46)
[2019-09-06] MEDS: INSULIN LISPRO 100 UNITS/ML SUBCUT SCH ×3 (09:12→18:34)
[2019-09-06 20:00] VITALS: BP 134/73
[2019-09-06] MEDS: INSULIN GLARGINE UD 100 UNITS/ML SYR SUBCUT SCH (22:13)
[2019-09-07] MEDS: IPRATROPIUM/ALBUTEROL 0.5-3(2.5)MG/3ML NEB HHN SCH ×2 (03:49→10:02)
[2019-09-07] MEDS: BLOOD SUGAR DIAGNOSTIC STRIP TEST SCH ×2 (06:09→11:32)
[2019-09-07] MEDS: INSULIN LISPRO (LOW DOSE) 100 UNITS/ML SUBCUT SCH ×2 (06:35→11:32)
[2019-09-07 08:02] VITALS: BP 122/71
[2019-09-07] MEDS: GUAIFENESIN 600MG ER TABLET PO SCH (08:11)
[2019-09-07] MEDS: FAMOTIDINE 20MG TABLET PO SCH (08:11)
[2019-09-07] MEDS: METOPROLOL TARTRATE 25MG TABLET PO SCH (08:12)
[2019-09-07] MEDS: DOCUSATE SODIUM 100MG CAPSULE PO SCH (08:12)
[2019-09-07] MEDS: FERROUS SULFATE 325MG TABLET PO SCH ×2 (08:12→12:17)
[2019-09-07] MEDS: LEVETIRACETAM 250MG TABLET PO SCH (08:12)
[2019-09-07] MEDS: INSULIN LISPRO 100 UNITS/ML SUBCUT SCH ×2 (08:16→12:20)
[2019-09-07] MEDS: ENTECAVIR 0.5MG TABLET PO SCH (08:16)
[2019-09-07 12:24] VITALS: BP 119/68
[2019-09-07] MEDS ORDERED: IBUPROFEN 200MG TABLET PO PRN (12:45)
[2019-09-07 13:23] VITALS: BP 119/68
== END 2019-09-07 14:45 | disposition home health service (06) | DRG 85 ==
PROVIDERS: ADMIT Psychiatry & Neurology Neurology; ATTEND Internal Medicine Nephrology
DX: S06.6X0A Traumatic subarachnoid hemorrhage without loss of consciousness, initial encounter (principal); G82.50 Quadriplegia, unspecified; I25.10 Atherosclerotic heart disease of native coronary artery without angina pectoris; R13.10 Dysphagia, unspecified; D69.6 Thrombocytopenia, unspecified; D50.9 Iron deficiency anemia, unspecified; E11.9 Type 2 diabetes mellitus without complications; E78.5 Hyperlipidemia, unspecified; E87.8 Other disorders of electrolyte and fluid balance, not elsewhere classified; F01.50 Vascular dementia, unspecified severity, without behavioral disturbance, psychotic disturbance, mood disturbance, and anxiety; F07.81 Postconcussional syndrome; I10 Essential (primary) hypertension
CPT/HCPCS: 36415; 80048; 82533; 82962; 83735; 84100; 84134; 84439; 84443; 85025; 86376; 92523; 92610; 94640; 97110; 97112; 97116; 97163; 97166; 97530; 97535; J1815; L0172